=== PATIENT | male | born 1955 | race Caucasian/White ===

== ENCOUNTER → 2020-02-27 10:42 | Outpatient (BNVA) | payer OTHER, SELFPAY | PROVIDERS: PCP Internal Medicine; Visit Provider Surgery | DX: Z01.818 Encounter for other preprocedural examination (principal); Z86.010 Personal history of colon polyps ==

== ENCOUNTER 2020-04-15 07:27 | Day surgery (SDC) | payer OTHER, SELFPAY ==
[2020-04-10 11:16] VITALS: BMI 29.1
[2020-04-15 08:08] VITALS: BP 156/88; PULSE 65; RESP 16; TEMP 36.4; O2SAT 99
--- NOTE | 2020-04-15 08:12 | HO.ANESPROP2 ---
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 [facility]LY [facility] Past Medical History Medical History GERD (gastroesophageal reflux disease) Hiatal hernia History of colon polyps Multiple system atrophy Sleep apnea TIA (transient ischemic attack) Family History Family History Father No problems noted. Mother History of breast cancer Family history of problems with anesthesia: No Surgical History Surgical History H/O arthroscopy of right knee History of colonoscopy (~06/2010) History of cystoscopy (~12/2009) Hx of esophagogastroduodenoscopy Hx of lumbar discectomy History of Problems with Anesthesia: No Social History Social History Are you a primary client care coordinator to a significant other at home: No Do you presently have visiting nurse or other home services: No Alcohol intake: never Smoking Status: Never smoker Second Hand Smoke Exposure: No Use of substances other than those prescribed or required for medical reasons: No Have you been hit, kicked, punched, or otherwise hurt by someone within the past year? If so, by whom?: No Advance Directives: No Advance Directives Information Provided: No Advance Directives on File: No Recently lost weight without trying: No Meds Allergies Allergy/AdvReac Type Severity Reaction Status Date / Time No Known Allergies Allergy Verified 04/15/20 08:02 [No Known Allergies*] Home Medications Medication Instructions Recorded Confirmed Type aspirin 81 mg tablet,delayed 81 mg PO DAILY 02/27/20 04/10/20 History release carbidopa 25 mg-levodopa 100 mg 1.5 tab PO TID tab 02/27/20 04/10/20 History tablet carbidopa ER 50 mg-levodopa 200 mg 1 tab PO BEDTIME 02/27/20 04/10/20 History tablet,extended release tamsulosin 0.4 mg capsule 0.4 mg PO BID 02/27/20 04/10/20 History donepezil 1 tab PO DAILY 04/10/20 04/10/20 History gabapentin enacarbil [Horizant] 600 mg PO BID 04/10/20 04/10/20 History Exam Exam Date and Time: April 15, 2020 0812 Height,Weight and Vital Signs: Height 5 ft 7 in Weight 84.368 kg Last Vital Signs Temp 97.6 F 04/15/20 08:08 Pulse 65 04/15/20 08:08 Resp 16 04/15/20 08:08 BP 156/88 H 04/15/20 08:08 Pulse Ox 99 04/15/20 08:08 Airway Mallampati Class: II TM Dist: >3cm Neck ROM: Full Heart: RRR Lungs: CTAB Assessment and Plan Assessment Anesthesia Assessment: Anesthesia Plan Discussed and Chart Reviewed Final Anesthetic Review NPO: Yes ASA Class: III Final Preanesthetic Review: No Changes in Pt Med Stat, Meds/Allgs Chart Reviewed, Consent Obtained/Reviewed and Anes Risks/Benef Reviewed Patient Risk: Intermediate Procedure Risk: Low Anesthetic Plan Anesthetic Plan: MAC: Disposition: Standard PACU
[2020-04-15] MEDS: Lactated Ringers 1,000 ML 100 ML IVCONT (08:13)
[2020-04-15] MEDS: Sodium Phosphate,Mono-Dibasic 133 ML ENEMA PR ×2 (08:32→08:46)
--- NOTE | 2020-04-15 08:35 | P.HPSUR_ITS ---
Pre-Procedural Eval Section B Chief Complaint: Hx of Colonic Polyps Details of Present Illness: personal history of colon polyps. no new GI complaints. Relevant Family History (Specify if Yes): No Relevant Social History: None Present Medications: see Short Stay Collaborative assessment Medical History: Significant History (multiple system atrophy, h/o TIA, sleep apnea) History of Previous Operations: No relevant previous surgery Allergies: Allergies Allergy/AdvReac Type Severity Reaction Status Date / Time No Known Allergies Allergy Verified 04/15/20 08:02 [No Known Allergies*] Review of Systems Sugical H&P ROS: Negative: Constitution, Cardiovascular, Respiratory, Psychiatric, Hem-Onc, Allergic/Immunologic, Gastrointestinal, Genitourinary, Integumentary, Endocrine and Eyes/Ears/Nose/Throat and Yes, Specify: Neurologi humberto (cognitive decline) and Musculoskeletal (weakness) Exam Surgical H&P Exam: Normal: HEENT, Normal: Heart, Normal: Lungs, Normal: Extremities, Normal: Abdomen, Normal: Skin and Normal: Neurological Exam Comment: No obvious cognitive defects Plan Diagnosis/Plan: Unchanged Patient has been examined and remains a candidate for the planned procedure
--- NOTE | 2020-04-15 08:43 | PC.NURSE ---
PT WITH DARK BROWN LIQUID AND RESIDUE. FLEETS ORDERED AND GIVEN AT 718. RESULTS WERE DARK LIQUID BROWN AND PARTICLES. 2ND FLEETS ORDERED AND GIVEN AT 0840.
[2020-04-15 10:17] VITALS: BP 124/82; PULSE 82; RESP 15; TEMP 36.4; O2SAT 97
--- NOTE | 2020-04-15 10:19 | W.PM.OPN ---
Operative Note Operative Note Date of Service: 04/15/20 Narrative: Preoperative diagnosis: History of colon polyps Postoperative diagnosis: Normal colon through transverse colon Procedure: Colonoscopy through transverse colon Anesthesia: Monitored anesthesia care Estimated blood loss: None Specimens: None Immediate complications: None Indications Mr. Wood is a 64-year-old gentleman with a history of colon polyps who presents for routine screening. Procedure in detail: With patient in left lateral decubitus position, time-out procedure was performed. Adequate sedation was then obtained. Rectal examination was performed and revealed decreased rectal tone. No other abnormalities were identified. The flexible pediatric colonoscope was introduced and was gradually advanced through the bowel to the level of either the proximal transverse colon or right colon. The prep was poor with a large amount of turbid fluid containing a significant amount of particulate material present throughout the bowel. This could be irrigated and suctioned away to a certain extent, but technical difficulties were encountered day as there was frequent clogging of the suction channel requiring flushing in changing of the suction button. Because of the large amount of liquid stool and particulate matter present, adequate visualization could not be obtained to advance the scope into the cecum. It appeared likely that the hepatic flexure had been reached. The scope was slowly withdrawn, visualizing mucosal surfaces as possible. No abnormalities were noted. He tolerated the procedure well. Because of his baseline medical condition, further attempts at colonoscopy likely will not be undertaken, but this will be discussed with him.
[2020-04-15 10:32] VITALS: BP 152/72; PULSE 65; RESP 18; TEMP 36.4; O2SAT 99
== END 2020-04-15 10:55 | disposition home or self-care (01) ==
PROVIDERS: PCP Internal Medicine; Visit Provider Surgery
PROC: 0DJD8ZZ Inspection of Lower Intestinal Tract, Via Natural or Artificial Opening Endoscopic (ICD-10-PCS; CPT 45378; principal; 2020-04-15 08:40)
DX: Z12.11 Encounter for screening for malignant neoplasm of colon (principal); Z86.010 Personal history of colon polyps; G90.3 Multi-system degeneration of the autonomic nervous system; G47.30 Sleep apnea, unspecified; K21.9 Gastro-esophageal reflux disease without esophagitis; K44.9 Diaphragmatic hernia without obstruction or gangrene; Z79.82 Long term (current) use of aspirin; Z79.899 Other long term (current) drug therapy; Z86.73 Personal history of transient ischemic attack (TIA), and cerebral infarction without residual deficits
CPT/HCPCS: 45378

== ENCOUNTER 2020-09-24 11:45 | Emergency (ER) | payer OTHER, SELFPAY ==
--- NOTE | ~2020-09-24 | CT_ITS ---
EXAMINATION: CT GI bleed, ABDOMEN AND PELVIS of the bowel. CONTRAST CLINICAL INFORMATION: Rectal bleeding. Abdominal pain. Concern for colitis. COMPARISON: CT abdomen pelvis 10/28/2013 TECHNIQUE: Helical CT scan of abdomen and pelvis. Images were obtained through the abdomen and pelvis precontrast, immediate postcontrast as well as a 2 minute delayed sequence. IV contrast: 80 mL Omnipaque 350 Oral contrast: None Reconstruction: Coronal and sagittal reformatted images performed at CT scanner by the technologist. [This CT examination was performed using dose optimization techniques as appropriate, variously including the following: *Automated exposure control *Adjustment of mA and/or kV according to patient size (this includes techniques or standardized protocols for targeted exams where dose is matched to indication/reason for exam; i.e. extremities or head) *Use of iterative reconstruction technique] FINDINGS: LUNG BASES: The visualized lung bases are unremarkable. LIVER, GALLBLADDER, AND BILIARY TREE: The liver is normal in size, shape, and attenuation. No focal hepatic lesion or biliary ductal dilatation is present. Small mildly dense gallstones or sludge layering dependently in the gallbladder. No edema around the gallbladder. There is no bile duct dilatation. PANCREAS: No acute change of the pancreas. No mass. No pancreatic duct dilatation. SPLEEN: Spleen normal in size and contour. No focal lesion. As a small splenule at the anterior splenic margin. ADRENAL GLANDS: Adrenal glands are normal in size. No focal mass. KIDNEYS AND URETERS: There is a nonobstructive 1 mm stone in the midpole the right kidney. There is no stone in the left kidney. There are no ureteral calculi. There is no hydronephrosis. BLADDER: Unremarkable. GASTROINTESTINAL TRACT: There are numerous diverticula of the sigmoid and descending colon. There are a few scattered diverticula also in the right colon. There is focal inflammation with bowel wall thickening and pericolonic edema at the mid through distal descending colon consistent with a mild to moderate diverticulitis. There is no perforation or abscess. On the postcontrast imaging exam there is no pooling of the contrast within the lumen of bowel. The site of the gastrointestinal hemorrhage is therefore not defined with this exam. There is a moderate volume of stool in the colon. The appendix is normal . The small bowel loops are unremarkable. The stomach is normal. There is no hiatal hernia. MESENTERY: No inflammation right lower quadrant due to the diverticulitis. No abscess. No free air or free fluid. ABDOMINAL WALL: No significant hernia is appreciated. LYMPH NODES: Normal. VASCULAR: Scattered vascular calcifications of aorta and iliac arteries. There is no aneurysm. PELVIC VISCERA: Prostate mildly enlarged measuring 5 cm transverse. Coarse calcifications within the prostate. OSSEOUS STRUCTURES: Multilevel degenerative spondylosis of the spine. CT/CT gi bleed abd pel wo/w con IMPRESSION: 1. Diverticulitis of the mid to distal descending colon. 2. There is no pooling of contrast in the lumen of the bowel to indicate a site of gastrointestinal hemorrhage. 3. Cholelithiasis. 4. Nonobstructive 1 mm stone in right kidney.
[2020-09-24 11:53] VITALS: BP 177/92; PULSE 72; RESP 18; TEMP 36.6; O2SAT 98; BMI 29.7
--- NOTE | 2020-09-24 13:01 | ED.GENADULT ---
HPI - General Adult General Chief complaint: GI Bleed Stated complaint: rectal bleeding Time Seen by Provider: 09/24/20 12:30 Source: patient Mode of arrival: ambulatory Limitations: no limitations History of Present Illness HPI narrative: Patient presents to ED for rectal bleeding since Monday and lower abdominal pain. Patient states stool is brown. Patient states also having bright red blood. Patient denies history of hemorrhoids. Patient states no fever or chills. Patient not on any blood thinners. Patient denies any recent trauma to the abdomen. Related Data Home Medications Medication Instructions Recorded Confirmed aspirin 81 mg tablet,delayed 81 mg PO DAILY 02/27/20 04/10/20 release carbidopa 25 mg-levodopa 100 mg 1.5 tab PO TID tab 02/27/20 04/10/20 tablet carbidopa ER 50 mg-levodopa 200 mg 1 tab PO BEDTIME 02/27/20 04/10/20 tablet,extended release tamsulosin 0.4 mg capsule 0.4 mg PO BID 02/27/20 04/10/20 Horizant 600 mg PO BID 04/10/20 04/10/20 donepezil 1 tab PO DAILY 04/10/20 04/10/20 Previous Rx's Medication Instructions Recorded ciprofloxacin HCl [Cipro] 500 mg PO Q12H 7 Days #14 tab 09/24/20 metronidazole 500 mg PO TID 7 Days #21 tab 09/24/20 Allergies Allergy/AdvReac Type Severity Reaction Status Date / Time No Known Allergies Allergy Verified 04/15/20 08:02 [No Known Allergies*] Review of Systems Review of Systems: Yes all other systems are reviewed and are negative Constitutional: Constitutional: Reports as per HPI and Reports no additional constitutional complaints Eyes: Eyes: Reports as per HPI and Reports no additional eye complaints ENT: Reports system reviewed and no additional complaints, except as documented and Reports as per HPI Cardiovascular: Cardiovascular: Reports as per HPI and Reports no additional cardiovascular complaints Respiratory: Respiratory: Reports as per HPI and Reports no additional respiratory complaints Gastrointestinal: Gastrointestinal: Reports as per HPI, Reports no additional gastrointestinal complaints, Reports abdominal pain (Lower abdominal pain) and Reports hematochezia Genitourinary: Genitourinary: Reports no additional male genitourinary complaints and Reports as per HPI Musculoskeletal: Musculoskeletal: Reports no additional musculoskeletal complaints and Reports as per HPI Neurologic: Reports system reviewed and no additional complaints, except as documented and Reports as per HPI Psychiatric: Psychiatric: Reports no additional psychiatric complaints and Reports as per HPI [facility] Past Medical History Medical History GERD (gastroesophageal reflux disease) Hiatal hernia History of colon polyps Multiple system atrophy Sleep apnea TIA (transient ischemic attack) Surgical History H/O arthroscopy of right knee History of colonoscopy (~06/2010) History of cystoscopy (~12/2009) Hx of esophagogastroduodenoscopy Hx of lumbar discectomy Family History Family History Father No problems noted. Mother History of breast cancer Social History Social History Alcohol intake: never Smoking Status: Never smoker Second Hand Smoke Exposure: No Advance Directives: No Advance Directives Information Provided: No Physical Exam Vital Signs: Vital Signs: Last Vital Signs Temp 97.6 F 09/24/20 13:12 Pulse 72 09/24/20 15:51 Resp 16 09/24/20 15:51 BP 152/80 H 09/24/20 13:12 Pulse Ox 99 09/24/20 15:51 Body Mass Index 29.7 Const: General: cooperative, healthy appearing, comfortable, no acute distress, well developed, alert, awake and Physically active Orientation/consciousness: patient oriented x3 HENMT: Head: Yes normal to inspection, Yes No palpable skull fracture present, Yes normocephalic and Yes atraumatic Eyes: General: appearance normal, both eyes and all related structures Neck: Neck: Yes normal visual inspection, Yes full ROM, Yes no lymphadenopathy, Yes no meningeal signs, Yes trachea midline, Yes supple and No tender Chest: Chest palpation & inspection: normal inspection of the chest and normal palpation of entire chest wall Resp: Effort & Inspection: normal respiratory effort and able to speak in complete sentences Auscultation: clear to auscultation bilaterally Cardio: Jugular venous distension: no JVD Heart sounds: S1 normal heart sound present and S2 normal heart sound present GI: Other: Rectal exam: Negative for hemorrhoids. positive for bright mary blood. negative for black stool. Inspection: Yes normal to inspection and No abdominal wall ecchymosis Palpation (GI): Soft to palpation, not firm, Tenderness to palpation present (GI) in the LLQ and in the RLQ, no guarding and not rigid : General: No CVA tenderness and Yes no CVA tenderness Back/Spine/Pelvis: Back: no CVA tenderness, No CVA tenderness and No back tenderness Skin: General skin exam: no rashes or lesions noted and elasticity normal Neuro: General: patient oriented x3, gait normal, no meningeal signs and CN's II-XI intact bilaterally Cranial nerves: Yes CN's II-XII intact bilaterally Extrem: General: Yes normal to inspection and Yes full ROM Psych: Appearance: grossly normal, well kempt and not disheveled Course Course Course Narrative: Patient will be evaluated for rule out GI bleed. Patient will have labs drawn. Patient was given fluid. Patient does not want any pain medication. Patient will have imaging done. Reevaluation(s) Reevaluation #1: Patient presently hemodynamically stable with due to bright red mary blood from rectum and not much stool on exam patient will have CT GI bleed protocol to look for location of GI bleed and also possible colitis. Patient not in any distress. Time: 14:14 Reevaluation #2: Patient's CT scan showed diverticulitis. Patient's CT scan also shows gallstones and lipase is elevated which may indicate gallstone pancreatitis, but patient presently does not have any abdominal pain in the ER and also patient stated he never had any upper abdominal pain. Patient main complaint was rectal bleeding. Will contact surgery. Reevaluation #3: Spoke with Dr. Sanabria of surgery and made her aware of patient's elevated lipase and CT scan reading of gallstones. She states since patient is not having any upper abdominal pain, patient could be discharged and to follow up with outpatient surgery. she states Presently patient does not have any need for surgical intervention. Patient will be discharged with Cipro and metronidazole. Patient given copying of images and labs to follow-up with PCP and surgeon Medical Decision Making MDM Narrative Medical decision making narrative: Diverticulitis Lab Data Result diagrams: 09/24/20 13:04 09/24/20 13:04 Labs: Lab Results 09/24/20 09/24/20 09/24/20 Range/Units 13:04 13:04 13:04 WBC 10.7 (4.8-10.8) X10*3/uL RBC 5.15 (4.60-5.80) X10*6/uL Hgb 16.2 (14.0-18.0) g/dl Hct 46.9 (42-52) % MCV 91.1 (80-98) fL MCH 31.5 (27.0-33.0) pg MCHC 34.5 (31.0-36.0) g/dl RDW 13.0 (11.0-16.0) % Plt Count 211 (160-400) X10*3/uL MPV 8.7 L (9.4-12.4) fL Immature Gran % (Auto) 0.3 (0.0-0.4) % Neut % (Auto) 67.5 (45-73) % Lymph % (Auto) 21.2 (20-40) % [place] % (Auto) 8.6 (2-11) % Eos % (Auto) 1.9 (0-4) % Baso % (Auto) 0.5 (0-2) % Lymph # (Auto) 2.3 (1.2-4.9) X10*3/uL [place] # (Auto) 0.9 (0.1-1.2) X10*3/uL Eos # (Auto) 0.2 (0.0-0.4) X10*3/uL Baso # (Auto) 0.1 (0.0-0.2) X10*3/uL Abs Immat Gran (auto) 0.03 (0.00-0.03) X10*3/uL Absolute Neuts (auto) 7.3 (2.0-8.3) X10*3/uL Absolute Nucleated RBC 0.000 (0.0-0.012) X10*3/uL Nucleated RBC % (auto) 0.0 (0.0-0.2) /100WBC PT 13.5 H (10.8-13.0) SEC INR 1.1 (0.9-1.1) APTT 36.6 (24.1-38.0) SEC Sodium 145 (135-145) mmol/L Potassium 3.8 (3.3-5.1) mmol/L Chloride 105 (96-108) mmol/L Carbon Dioxide 31 H (22-29) mmol/L Anion Gap 13 (12-20) BUN 13 (9-16) mg/dL Creatinine 0.81 (0.5-1.4) mg/dL Estim Creat Clear Calc 96.6 Estimated GFR > 60 Random Glucose 97 (60-115) mg/dL Calcium 9.2 (8.4-10.2) mg/dL Total Bilirubin 1.1 H (0.0-1.0) mg/dL Direct Bilirubin 0.4 (0.0-0.5) mg/dL AST 21 (5-37) U/L ALT 6 (0-40) U/L Alkaline Phosphatase 49 (39-117) U/L Total Protein 7.2 (6.5-8.0) g/dL Albumin 4.4 (3.5-5.0) g/dL Lipase 836 H (8-78) U/L Stool Occult Blood (NEGATIVE) Blood Type Antibody Screen 09/24/20 09/24/20 Range/Units 13:04 13:30 WBC (4.8-10.8) X10*3/uL RBC (4.60-5.80) X10*6/uL Hgb (14.0-18.0) g/dl Hct (42-52) % MCV (80-98) fL MCH (27.0-33.0) pg MCHC (31.0-36.0) g/dl RDW (11.0-16.0) % Plt Count (160-400) X10*3/uL MPV (9.4-12.4) fL Immature Gran % (Auto) (0.0-0.4) % Neut % (Auto) (45-73) % Lymph % (Auto) (20-40) % [place] % (Auto) (2-11) % Eos % (Auto) (0-4) % Baso % (Auto) (0-2) % Lymph # (Auto) (1.2-4.9) X10*3/uL [place] # (Auto) (0.1-1.2) X10*3/uL Eos # (Auto) (0.0-0.4) X10*3/uL Baso # (Auto) (0.0-0.2) X10*3/uL Abs Immat Gran (auto) (0.00-0.03) X10*3/uL Absolute Neuts (auto) (2.0-8.3) X10*3/uL Absolute Nucleated RBC (0.0-0.012) X10*3/uL Nucleated RBC % (auto) (0.0-0.2) /100WBC PT (10.8-13.0) SEC INR (0.9-1.1) APTT (24.1-38.0) SEC Sodium (135-145) mmol/L Potassium (3.3-5.1) mmol/L Chloride (96-108) mmol/L Carbon Dioxide (22-29) mmol/L Anion Gap (12-20) BUN (9-16) mg/dL Creatinine (0.5-1.4) mg/dL Estim Creat Clear Calc Estimated GFR Random Glucose (60-115) mg/dL Calcium (8.4-10.2) mg/dL Total Bilirubin (0.0-1.0) mg/dL Direct Bilirubin (0.0-0.5) mg/dL AST (5-37) U/L ALT (0-40) U/L Alkaline Phosphatase (39-117) U/L Total Protein (6.5-8.0) g/dL Albumin (3.5-5.0) g/dL Lipase (8-78) U/L Stool Occult Blood POSITIVE (NEGATIVE) Blood Type AB Positive Antibody Screen NEGATIVE Discharge Plan Discharge Clinical Impression: Diverticulitis, Gallstone Patient Disposition: Home, Self-Care Instructions: Diverticulitis (ED), Biliary Colic (ED) Additional Instructions: Return to the ED immediately for worsening abdominal pain, worsening rectal bleeding, vomiting, fever, chills, inability tolerate solid food/liquid, or any other concerning symptoms. Prescriptions: New ciprofloxacin HCl [Cipro] 500 mg tablet 500 mg PO Q12H 7 Days Qty: 14 RF: 0 metronidazole 500 mg tablet 500 mg PO TID 7 Days Qty: 21 RF: 0 No Action donepezil 5 mg tablet 1 tab PO DAILY RF: 0 Horizant 600 mg tablet extended release 600 mg PO BID RF: 0 carbidopa-levodopa 50-200 mg tablet extended release 1 tab PO BEDTIME RF: 0 tamsulosin 0.4 mg capsule 0.4 mg PO BID RF: 0 aspirin 81 mg tablet,delayed release (DR/EC) 81 mg PO DAILY RF: 0 carbidopa-levodopa 25-100 mg tablet 1.5 tab PO TID RF: 0 Referrals: Neil Lewis MD [Primary Care Provider] - 2 days (Diverticulitis) Miryam Jeong MD [Physician] - 2 days (CT scan shows gallstones. Elevated lipase of 143, but negative for any upper abdominal pain.) Interventions: ED Discharge Assessment Last Done: 09/24/20 18:16 Discharge Date/Time: 09/24/20 18:16 Print Language: Slovak
[2020-09-24] MEDS: 0.9 % Sodium Chloride 1,000 ML 999 ML IV (13:05)
[2020-09-24 13:11] LABS: MANUAL DIFF FLAG NO
[2020-09-24 13:12] VITALS: BP 152/80; PULSE 68; RESP 15; TEMP 36.4; O2SAT 97
[2020-09-24 13:13] LABS: Basophils Absolute Auto 0.1 X10*3/uL (0.0-0.2); Basophils Percent Auto 0.5 % (0-2); Eosinophils Absolute Auto 0.2 X10*3/uL (0.0-0.4); Eosinophils Percent Auto 1.9 % (0-4); Hematocrit 46.9 % (42-52); Hemoglobin 16.2 g/dl (14.0-18.0); Imm Gran Abs Auto 0.03 X10*3/uL (0.00-0.03); Imm Gran Pct Auto 0.3 % (0.0-0.4); Lymphocytes Absolute Auto 2.3 X10*3/uL (1.2-4.9); Lymphocytes Percent Auto 21.2 % (20-40); Mean Corpuscular HGB Conc 34.5 g/dl (31.0-36.0); Mean Corpuscular Hemoglobin 31.5 pg (27.0-33.0); Mean Corpuscular Volume 91.1 fL (80-98); Mean Platelet Volume 8.7 fL (9.4-12.4); Monocytes Absolute Auto 0.9 X10*3/uL (0.1-1.2); Monocytes Percent Auto 8.6 % (2-11); Neutrophils Absolute Auto 7.3 X10*3/uL (2.0-8.3); Neutrophils Percent Auto 67.5 % (45-73); OBS Int Ctl Valid YES; OBS1 POSITIVE (NEGATIVE); Platelet Count 211 X10*3/uL (160-400); Red Blood Count 5.15 X10*6/uL (4.60-5.80); White Blood Count 10.7 X10*3/uL (4.8-10.8)
[2020-09-24 13:20] LABS: INTERNATIONAL NORM RATIO 1.1 (0.9-1.1); Prothrombin Time 13.5 SEC (10.8-13.0)
[2020-09-24 13:22] LABS: Partial Thromboplastin Time 36.6 SEC (24.1-38.0)
[2020-09-24 13:53] LABS: Alanine Aminotransferase 6 U/L (0-40); Albumin Level 4.4 g/dL (3.5-5.0); Alkaline Phosphatase 49 U/L (39-117); Anion Gap 13 (12-20); Aspartate Amino Transferase 21 U/L (5-37); Bilirubin Direct 0.4 mg/dL (0.0-0.5); Bilirubin Total 1.1 mg/dL (0.0-1.0); Blood Urea Nitrogen 13 mg/dL (9-16); Calcium 9.2 mg/dL (8.4-10.2); Carbon Dioxide 31 mmol/L (22-29); Chloride 105 mmol/L (96-108); Creatinine Clr Calc Pharmacy 96.6; Estimated Glomerular Filt Rate > 60; Glucose Random 97 mg/dL (60-115); Potassium 3.8 mmol/L (3.3-5.1); Sodium 145 mmol/L (135-145); Total Protein 7.2 g/dL (6.5-8.0)
[2020-09-24 14:04] LABS: Lipase 836 U/L (8-78)
[2020-09-24] MEDS: iohexoL 350 MG/ML 100 ML INFUS..BTL IV (15:02)
[2020-09-24] MEDS: Carbidopa/Levodopa 25/100 TABLET 1 TAB PO (15:50)
[2020-09-24 15:51] VITALS: PULSE 72; RESP 16; O2SAT 99
--- NOTE | 2020-09-24 15:53 | PC.NURSE ---
AWAITING CT SCAN RESULTS. SKIN WPD, VS WNL, BP SLIGTLY ELEVATED. REPORTS ONGOING ABD PAIN. MEDICATED REQUESTED BY PT.
== END 2020-09-24 18:16 | disposition home or self-care (01) ==
PROVIDERS: Physician Assistant; Emergency Provider Internal Medicine; PCP Internal Medicine
DX: K57.32 Diverticulitis of large intestine without perforation or abscess without bleeding (principal); K80.80 Other cholelithiasis without obstruction; Z79.899 Other long term (current) drug therapy; Z79.82 Long term (current) use of aspirin
CPT/HCPCS: 36415; 74178; 80053; 80076; 82248; 82272; 83690; 85025; 85610; 85730; 86850; 86900; 86901; 96360; 99284; Q9967

== ENCOUNTER 2020-09-29 16:06 | Outpatient (REF) | payer OTHER, SELFPAY ==
[2020-09-29 16:11] LABS: MANUAL DIFF FLAG NO
[2020-09-29 16:14] LABS: Basophils Absolute Auto 0.1 X10*3/uL (0.0-0.2); Basophils Percent Auto 0.7 % (0-2); Eosinophils Absolute Auto 0.2 X10*3/uL (0.0-0.4); Eosinophils Percent Auto 2.7 % (0-4); Hematocrit 44.7 % (42-52); Hemoglobin 15.2 g/dl (14.0-18.0); Imm Gran Abs Auto 0.01 X10*3/uL (0.00-0.03); Imm Gran Pct Auto 0.1 % (0.0-0.4); Lymphocytes Absolute Auto 2.4 X10*3/uL (1.2-4.9); Lymphocytes Percent Auto 32.9 % (20-40); Mean Corpuscular Hemoglobin 30.5 pg (27.0-33.0); Mean Corpuscular Volume 89.6 fL (80-98); Mean Platelet Volume 9.3 fL (9.4-12.4); Monocytes Absolute Auto 0.7 X10*3/uL (0.1-1.2); Monocytes Percent Auto 10.1 % (2-11); Neutrophils Absolute Auto 3.8 X10*3/uL (2.0-8.3); Neutrophils Percent Auto 53.5 % (45-73); Platelet Count 233 X10*3/uL (160-400); Red Blood Count 4.99 X10*6/uL (4.60-5.80); Red Cell Distribution Width 12.8 % (11.0-16.0); White Blood Count 7.2 X10*3/uL (4.8-10.8)
[2020-09-29 16:40] LABS: Amylase 63 U/L (28-100); Lipase 30 U/L (8-78)
== END 2020-09-29 16:07 | disposition home or self-care (01) ==
LOC: HO.LNP 16:06
PROVIDERS: Visit Provider Internal Medicine
DX: K57.92 Diverticulitis of intestine, part unspecified, without perforation or abscess without bleeding (principal)
CPT/HCPCS: 82150; 83690; 85025

== ENCOUNTER 2020-10-23 10:52 | Outpatient (REF) | payer OTHER, SELFPAY ==
[2020-10-23 12:15] LABS: Blood Urea Nitrogen 18 mg/dL (9-16); Estimated Glomerular Filt Rate > 60
== END 2020-10-23 10:53 | disposition home or self-care (01) ==
LOC: HO.LNP 10:52
PROVIDERS: Visit Provider Internal Medicine
DX: Z01.812 Encounter for preprocedural laboratory examination (principal)
CPT/HCPCS: 82565; 84520

== ENCOUNTER 2020-10-28 08:34 | Outpatient (REF) | payer OTHER, SELFPAY ==
--- NOTE | ~2020-10-28 | CT_ITS ---
EXAMINATION: CT ABDOMEN AND PELVIS WITH CONTRAST CLINICAL INFORMATION: Abdominal pain, rule out diverticulitis. COMPARISON: CT scan of the abdomen and pelvis dated 09/24/2020. TECHNIQUE: Multidetector volumetric images were obtained from the superior aspect of the liver through the pubic symphysis following administration 85 mL of Omnipaque 350 intravenous contrast. Sagittal and coronal reformatted images were obtained on the technologist's workstation. Oral contrast: No This CT examination was performed using dose optimization techniques as appropriate, variously including the following: *Automated exposure control *Adjustment of mA and/or kV according to patient size (this includes techniques or standardized protocols for targeted exams where dose is matched to indication/reason for exam; i.e. extremities or head) *Use of iterative reconstruction technique DLP: 49 mGy-cm FINDINGS: LUNG BASES: The visualized lung bases are unremarkable. LIVER, GALLBLADDER, AND BILIARY TREE: Unremarkable. PANCREAS: Unremarkable. SPLEEN: Small splenule again noted without other significant abnormality. ADRENAL GLANDS: Unremarkable. KIDNEYS AND URETERS: Nonobstructing punctate interpolar right intrarenal calculus. Tiny cyst in the lower pole the left kidney without interval change. No hydronephrosis. BLADDER: Mild mural thickening without focal abnormality. GASTROINTESTINAL TRACT: The stomach, small bowel and appendix are unremarkable. Mild diverticulosis in the descending and sigmoid colon without surrounding abnormality. ABDOMINAL WALL: No significant hernia is appreciated. LYMPH NODES: No lymphadenopathy. VASCULAR: Unremarkable. PELVIC VISCERA: Moderate prostatomegaly with mild coarse calcifications and a volume of approximately 70 cc. OSSEOUS STRUCTURES: Multilevel degenerative changes and osseous fusion of L4 and L5 without significant change. No suspicious abnormality. CT/CT abdomen pelvis w con IMPRESSION: 1. Mild descending/sigmoid colon diverticulosis without evidence for acute diverticulitis. 2. Nonobstructing punctate interpolar right intrarenal calculus. Tiny left lower pole renal cyst demonstrates benign features. 3. Moderate prostatomegaly.
[2020-10-28] MEDS: iohexoL 350 MG/ML 100 ML INFUS..BTL 85 ML IV (11:06)
[2020-10-28] MEDS: Barium Sulfate Oral (Berry) 450 ML ORAL.SUSP 900 ML PO (11:06)
== END 2020-10-28 08:35 | disposition home or self-care (01) ==
LOC: HO.CT 08:34
PROVIDERS: PCP Internal Medicine; Visit Provider Internal Medicine
DX: K57.92 Diverticulitis of intestine, part unspecified, without perforation or abscess without bleeding (principal)
CPT/HCPCS: 74177; Q9967

== ENCOUNTER 2021-02-02 10:32 | Outpatient (REF) | payer OTHER, SELFPAY ==
[2021-02-02 10:34] LABS: MANUAL DIFF FLAG NO
[2021-02-02 11:20] LABS: Basophils Absolute Auto 0.1 X10*3/uL (0.0-0.2); Basophils Percent Auto 0.7 % (0-2); Eosinophils Absolute Auto 0.2 X10*3/uL (0.0-0.4); Eosinophils Percent Auto 2.9 % (0-4); Hemoglobin 15.5 g/dl (14.0-18.0); Imm Gran Abs Auto 0.01 X10*3/uL (0.00-0.03); Imm Gran Pct Auto 0.1 % (0.0-0.4); Lymphocytes Absolute Auto 3.3 X10*3/uL (1.2-4.9); Lymphocytes Percent Auto 47.8 % (20-40); Mean Corpuscular HGB Conc 33.7 g/dl (31.0-36.0); Mean Corpuscular Hemoglobin 30.3 pg (27.0-33.0); Mean Corpuscular Volume 89.8 fL (80-98); Mean Platelet Volume 9.3 fL (9.4-12.4); Monocytes Absolute Auto 0.8 X10*3/uL (0.1-1.2); Monocytes Percent Auto 10.8 % (2-11); Neutrophils Absolute Auto 2.6 X10*3/uL (2.0-8.3); Neutrophils Percent Auto 37.7 % (45-73); Platelet Count 223 X10*3/uL (160-400); Red Blood Count 5.12 X10*6/uL (4.60-5.80); Red Cell Distribution Width 13.1 % (11.0-16.0)
[2021-02-02 12:02] LABS: Alanine Aminotransferase 15 U/L (0-40); Albumin Level 4.3 g/dL (3.5-5.0); Alkaline Phosphatase 44 U/L (39-117); Anion Gap 14 (12-20); Aspartate Amino Transferase 28 U/L (5-37); Bilirubin Total 0.9 mg/dL (0.0-1.0); Blood Urea Nitrogen 13 mg/dL (9-16); Calcium 8.9 mg/dL (8.4-10.2); Carbon Dioxide 26 mmol/L (22-29); Chloride 106 mmol/L (96-108); Cholesterol 181 mg/dL; Estimated Glomerular Filt Rate > 60; Glucose Fasting 91 mg/dL (60-99); HDL Cholesterol 36 mg/dL; LDL Cholesterol Calculated 124 mg/dl; Potassium 3.9 mmol/L (3.3-5.1); Sodium 142 mmol/L (135-145); Total Protein 6.9 g/dL (6.5-8.0); Triglycerides 108 mg/dL
[2021-02-02 12:24] LABS: PSA,Total (Free>4and<10) 2.21 ng/mL (0.00-4.00)
[2021-02-02 12:42] LABS: Appearance Urine CLEAR; Color Urine YELLOW; Glucose Urine UA NEG (NEG); Leukocyte Esterase Urine NEG (NEG); Nitrite Urine NEG (NEG); Specific Gravity - Urine 1.015 (1.005-1.025); Urine Blood NEG (NEG); Urine Ketones NEG (NEG); Urine Protein NEG (NEG-TRACE)
== END 2021-02-02 10:33 | disposition home or self-care (01) ==
LOC: HO.LNP 10:32
PROVIDERS: Visit Provider Internal Medicine
DX: Z00.00 Encounter for general adult medical examination without abnormal findings (principal); Z12.5 Encounter for screening for malignant neoplasm of prostate; E78.00 Pure hypercholesterolemia, unspecified; N40.0 Benign prostatic hyperplasia without lower urinary tract symptoms; D72.820 Lymphocytosis (symptomatic)
CPT/HCPCS: 80053; 80061; 81003; 84153; 85025

== ENCOUNTER → 2021-12-02 10:47 | Outpatient (BNVA) | payer MEDICARE, SELFPAY | PROVIDERS: PCP Internal Medicine; Visit Provider Nurse Practitioner Family | DX: G47.33 Obstructive sleep apnea (adult) (pediatric) (principal); R40.0 Somnolence; R06.83 Snoring; Z99.89 Dependence on other enabling machines and devices | CPT/HCPCS: 99202 ==

== ENCOUNTER → 2021-12-15 08:44 | Outpatient (REF) | payer MEDICARE, SELFPAY | LOC: HO.SL 08:44 | PROVIDERS: PCP Internal Medicine; Visit Provider Nurse Practitioner Family | DX: G47.30 Sleep apnea, unspecified (principal); R40.0 Somnolence; R06.83 Snoring | CPT/HCPCS: 95806 ==

== ENCOUNTER 2022-03-03 11:14 | Outpatient (REF) | payer MEDICARE, SELFPAY ==
[2022-03-03 11:19] LABS: MANUAL DIFF FLAG NO
[2022-03-03 11:30] LABS: Basophils Absolute Auto 0.1 X10*3/uL (0.0-0.2); Basophils Percent Auto 0.9 % (0-2); Eosinophils Absolute Auto 0.2 X10*3/uL (0.0-0.4); Eosinophils Percent Auto 2.9 % (0-4); Hematocrit 46.2 % (42.0-52.0); Hemoglobin 15.9 g/dl (14.0-18.0); Imm Gran Abs Auto 0.02 X10*3/uL (0.00-0.03); Imm Gran Pct Auto 0.3 % (0.0-0.4); Lymphocytes Absolute Auto 3.5 X10*3/uL (1.2-4.9); Lymphocytes Percent Auto 43.7 % (20-40); Mean Corpuscular HGB Conc 34.4 g/dl (31.0-36.0); Mean Corpuscular Hemoglobin 31.1 pg (27.0-33.0); Mean Corpuscular Volume 90.4 fL (80.0-98.0); Monocytes Absolute Auto 0.8 X10*3/uL (0.1-1.2); Monocytes Percent Auto 9.6 % (2-11); Neutrophils Absolute Auto 3.4 x10*3/uL (2.0-8.3); Neutrophils Percent Auto 42.6 % (45-73); Platelet Count 261 X10*3/uL (160-400); Red Blood Count 5.11 X10*6/uL (4.60-5.80); Red Cell Distribution Width 13.2 % (11.0-16.0); White Blood Count 7.9 X10*3/uL (4.8-10.8)
[2022-03-03 11:41] LABS: Appearance Urine Clear; Color Urine Yellow; Glucose Urine UA Negative (Negative); Leukocyte Esterase Urine Trace (Negative); Nitrite Urine Negative (Negative); PH 5.5 (5.0-9.0); UMIC TRIGGER UA YES; Urine Blood Negative (Negative); Urine Ketones Negative (Negative); Urine Protein Negative (Neg-Trace)
[2022-03-03 11:43] LABS: Alanine Aminotransferase 15 U/L (0-40); Albumin Level 4.4 g/dL (3.5-5.0); Alkaline Phosphatase 48 U/L (39-117); Anion Gap 14 (12-20); Aspartate Amino Transferase 28 U/L (5-37); Bilirubin Total 0.5 mg/dL (0.0-1.0); Blood Urea Nitrogen 12 mg/dL (9-16); Calcium 8.8 mg/dL (8.4-10.2); Carbon Dioxide 27 mmol/L (22-29); Chloride 105 mmol/L (96-108); Cholesterol 195 mg/dL; Estimated Glomerular Filt Rate > 60; Glucose Fasting 96 mg/dL (60-99); HDL Cholesterol 33 mg/dL; LDL Cholesterol Calculated 124 mg/dl; Potassium 3.9 mmol/L (3.3-5.1); Sodium 142 mmol/L (135-145); Total Protein 7.2 g/dL (6.5-8.0); Triglycerides 190 mg/dL
[2022-03-03 11:47] LABS: Bacteria Urine None Seen (None Seen); Hyaline Casts Urine 0-2 /LPF (0-2); RBC Urine 0-2 /HPF (0-2); Squamous Epithelial Cell Urine 0-2 /HPF (0-2); WBC Urine 0-5 /HPF (0-5)
[2022-03-03 12:06] LABS: PSA,Total (Free>4and<10) 1.95 ng/mL (0.00-4.00)
== END 2022-03-03 11:15 | disposition home or self-care (01) ==
LOC: HO.LNP 11:14
PROVIDERS: Visit Provider Internal Medicine
DX: E78.00 Pure hypercholesterolemia, unspecified (principal); D72.820 Lymphocytosis (symptomatic); R97.20 Elevated prostate specific antigen [PSA]; Z12.5 Encounter for screening for malignant neoplasm of prostate
CPT/HCPCS: 80053; 80061; 81001; 84153; 85025

== ENCOUNTER → 2022-06-08 07:52 | Outpatient (BNVA) | payer MEDICARE, SELFPAY | PROVIDERS: PCP Internal Medicine; Visit Provider Nurse Practitioner Family | DX: R40.0 Somnolence (principal); G47.30 Sleep apnea, unspecified; G90.3 Multi-system degeneration of the autonomic nervous system | CPT/HCPCS: 99212 ==

== ENCOUNTER → 2022-09-07 07:49 | Outpatient (BNVA) | payer MEDICARE, SELFPAY | PROVIDERS: PCP Internal Medicine; Visit Provider Nurse Practitioner Family | DX: R40.0 Somnolence (principal); G47.30 Sleep apnea, unspecified; G90.3 Multi-system degeneration of the autonomic nervous system | CPT/HCPCS: 99212 ==

== ENCOUNTER 2023-01-25 15:11 | Outpatient (AMB) | payer MEDICARE, SELFPAY ==
[2023-01-25 15:18] VITALS: BP 130/82; PULSE 70; O2SAT 97; BMI 30.6
--- NOTE | 2023-01-25 15:18 | MHC.OFFVIS ---
Intake Vital Signs 01/25/23 15:18 Height 5 ft 7 in Weight 195 lb 2 oz BMI 30.6 BP 130/82 Blood Pressure Location Lt brachial Position Sitting Pulse 70 Pulse Source Pulse Oximeter Pulse Oximetry (%) 97 Oxygen Delivery Method Room Air Intake Visit Reasons: New prob- Restless leg syndrome-confirmed Intake Note: Pt presents as for a new problem. Tissue Coordinator Required: No Allergies No Known Allergies [No Known Allergies*] Allergy (Verified 01/25/23 15:20) Medication List - Last Reconciled 01/25/23 by Heather Ellison MD acetaminophen (Tylenol Extra Strength) 1,000 mg PO Q6H PRN carbidopa-levodopa 25-100 mg 1.5 tabs PO TID carbidopa-levodopa 50-200 mg ER 1 tab PO BEDTIME gabapentin enacarbil ER (Horizant ER) 600 mg PO BID lisinopril 5 mg PO DAILY tamsulosin 0.4 mg PO BID HPI HPI Comments History of Present Illness Details 67 y/o male patient presents for follow up of DARIUSZ on CPAP. The CPAP compliance and therapy response (11/18-01/18) reviewed with the patient. He is on APAP 10-12 cmH2O. THe usage days 86% and the average usage hours 5 hours and 20 min. 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 He reports uncomfortable sensations , creepy crawly sensation in his legs worse after 6 pm .It is present at rest, with activity and moving does not help.He denies any back pain.Once he sleeps he does not wake up with these symptoms. He tried on gabapentin and he did not respond, he was started on horizant ER 600mg bid 3 years ago and has been doing well. But for past 3 mths he is reporting increasing symptoms. [facility] Medical History (Updated 01/25/23 @ 16:02 by Heather Ellison MD) GERD (gastroesophageal reflux disease) Hiatal hernia History of colon polyps Multiple system atrophy Obstructive sleep apnea Restless legs syndrome (RLS) Sleep apnea TIA (transient ischemic attack) Surgical History H/O arthroscopy of right knee History of colonoscopy (~06/2010) History of cystoscopy (~12/2009) Hx of esophagogastroduodenoscopy Hx of lumbar discectomy Family History Father No problems noted. Mother History of breast cancer Social History Household Members: Spouse Are you a primary child care aide to a significant other at home: No Do you presently have visiting nurse or other home services: No Alcohol intake: former Patient Tobacco Use Status: Never used Tobacco Second Hand Smoke Exposure: No Use of substances other than those prescribed or required for medical reasons: No Current occupational status: retired Physical Exam Vital Signs: Last Vital Signs Pulse 70 01/25/23 15:18 BP 130/82 01/25/23 15:18 Pulse Ox 97 01/25/23 15:18 Oxygen Delivery Method Room Air 01/25/23 15:18 BMI result Body Mass Index 30.6 Const General: cooperative, healthy appearing and comfortable Nutritional Appearance: average body habitus Orientation/consciousness: patient oriented x3 Neuro Other: mild decreased facial expression and blink Mild increased tone left UE FFM mildly decrease dleft UE Gait- decreased arm swing on the left and stooped in lower back General: patient oriented x3 Cranial nerves: Yes Facial sensation intact/muscles of mastication intact, Yes Nystagmus not present, Yes Normal facial strength present and Yes Midline tongue present Cognition (Neuro): normal cognition Assessment & Plan Assessment & Plan (1) Restless legs syndrome (RLS): Code(s): G25.81 - Restless legs syndrome (2) Obstructive sleep apnea: Code(s): G47.33 - Obstructive sleep apnea (adult) (pediatric) (3) Multiple system atrophy: Comment: Sees Dr. Berlin Jade @ [facility] in [place]- Code(s): G90.3 - Multi-system degeneration of the autonomic nervous system Plan continue CPAP compliance stressed Continue horizant Er 600mg bid I will trial him on neupro patch 2mg qd continue carbidopa/levodopa - same dose will check his ferritin TSH VIT B 12 cbc cmp Orders: Orders Vitamin B12 and Folate Today G25.81 - Restless legs syndrome, G90.3 - Multi-system degeneration of the autonomic nervous system Comprehensive Met. Panel Today G25.81 - Restless legs syndrome, G90.3 - Multi-system degeneration of the autonomic nervous system Ferritin Today G2 - Restless legs syndrome, G90.3 - Multi-system degeneration of the autonomic nervous system TSH reflex Free T4 Today - Restless legs syndrome, G90.3 - Multi-system degeneration of the autonomic nervous system Vitamin D 25-OH (D2 and D3) Today - Restless legs syndrome, G90.3 - Multi-system degeneration of the autonomic nervous system Complete Blood Count Auto Diff Today - Restless legs syndrome, G90.3 - Multi-system degeneration of the autonomic nervous system Medications: New rotigotine (Neupro) 2 mg transdermal DAILY 30 ea 3RF Coding Level of Care Code Est Pt Level 4 (23479) Diagnoses Restless legs syndrome (RLS) Obstructive sleep apnea G47.33 Multiple system atrophy G90.3
== END 2023-01-25 16:06 | disposition home or self-care (01) ==
PROVIDERS: PCP Internal Medicine; Visit Provider Psychiatry & Neurology Neurology
DX: G25.81 Restless legs syndrome (principal); G47.33 Obstructive sleep apnea (adult) (pediatric); G90.3 Multi-system degeneration of the autonomic nervous system
CPT/HCPCS: 99214

== ENCOUNTER → 2023-01-25 15:11 | Outpatient (BNVA) | payer MEDICARE, SELFPAY | PROVIDERS: PCP Internal Medicine; Visit Provider Psychiatry & Neurology Neurology | DX: G47.33 Obstructive sleep apnea (adult) (pediatric) (principal); G25.81 Restless legs syndrome; G90.3 Multi-system degeneration of the autonomic nervous system; Z79.899 Other long term (current) drug therapy; Z99.89 Dependence on other enabling machines and devices | CPT/HCPCS: 99212 ==

== ENCOUNTER 2023-01-26 07:59 | Outpatient (REF) | payer MEDICARE, SELFPAY ==
[2023-01-26 08:33] LABS: MANUAL DIFF FLAG NO
[2023-01-26 08:37] LABS: Basophils Percent Auto 0.5 % (0-2); Eosinophils Absolute Auto 0.2 X10*3/uL (0.0-0.4); Eosinophils Percent Auto 3.3 % (0-4); Hemoglobin 16.3 g/dl (14.0-18.0); Imm Gran Abs Auto 0.01 X10*3/uL (0.00-0.03); Imm Gran Pct Auto 0.2 % (0.0-0.4); Lymphocytes Absolute Auto 2.6 X10*3/uL (1.2-4.9); Mean Corpuscular Hemoglobin 31.3 pg (27.0-33.0); Mean Corpuscular Volume 92.1 fL (80.0-98.0); Monocytes Absolute Auto 0.4 X10*3/uL (0.1-1.2); Monocytes Percent Auto 6.9 % (2-11); Neutrophils Absolute Auto 2.8 x10*3/uL (2.0-8.3); Neutrophils Percent Auto 46.1 % (45-73); Platelet Count 232 X10*3/uL (160-400); Red Blood Count 5.21 X10*6/uL (4.60-5.80); Red Cell Distribution Width 13.2 % (11.0-16.0)
[2023-01-26 09:39] LABS: Alanine Aminotransferase 7 U/L (0-40); Albumin Level 4.5 g/dL (3.5-5.0); Alkaline Phosphatase 43 U/L (39-117); Anion Gap 12 (12-20); Aspartate Amino Transferase 26 U/L (5-37); Bilirubin Total 0.9 mg/dL (0.0-1.0); Blood Urea Nitrogen 12 mg/dL (9-16); Calcium 9.6 mg/dL (8.4-10.2); Carbon Dioxide 28 mmol/L (22-29); Chloride 106 mmol/L (96-108); Estimated Glomerular Filt Rate > 60; Glucose Random 101 mg/dL (60-115); Potassium 4.1 mmol/L (3.3-5.1); Sodium 142 mmol/L (135-145); Total Protein 7.7 g/dL (6.5-8.0)
[2023-01-26 09:59] LABS: Ferritin 250 ng/mL (20-250); TSH reflex Free T4 1.26 uIU/mL (0.32-4.0)
[2023-01-26 10:16] LABS: Folate 12.3 ng/mL (> or = 4.0); Vitamin B12 460 pg/mL (200-900)
[2023-02-01 11:48] LABS: Vitamin D 25-OH, D2 <4 ng/mL; Vitamin D 25-OH, D3 24 ng/mL; Vitamin D 25-OH, Total 24 ng/mL (30-100)
== END 2023-01-26 08:00 | disposition home or self-care (01) ==
LOC: HO.LAB 07:59
PROVIDERS: PCP Internal Medicine; Visit Provider Psychiatry & Neurology Neurology
DX: G90.3 Multi-system degeneration of the autonomic nervous system (principal); G25.81 Restless legs syndrome
CPT/HCPCS: 36415; 80053; 82306; 82607; 82728; 82746; 84443; 85025

== ENCOUNTER 2023-03-29 13:16 | Outpatient (AMB) | payer MEDICARE, SELFPAY ==
--- NOTE | 2023-03-29 13:18 | A.OFFVIS_ITS ---
Intake Vital Signs 03/29/23 13:24 Height 5 ft 7 in BP 142/78 H Blood Pressure Location Rt brachial Position Sitting Intake Visit Reasons: follow up (per MD) - Conf through CW Intake Note: Patient presents for follow up. patient states follow up on medication, I had a reaction to it. Allergies No Known Allergies [No Known Allergies*] Allergy (Verified 03/29/23 13:23) Medication List - Last Reconciled 03/29/23 by Svitlana Fox CNP acetaminophen (Tylenol Extra Strength) 1,000 mg PO Q6H PRN carbidopa-levodopa 25-100 mg 1.5 tabs PO TID carbidopa-levodopa 50-200 mg ER 1 tab PO BEDTIME gabapentin enacarbil ER (Horizant ER) 600 mg PO BID lisinopril 5 mg PO DAILY tamsulosin 0.4 mg PO BID HPI HPI Comments History of Present Illness Details 67 y/o male patient presents for follow up of DARIUSZ on CPAP, and restless legs syndrome. The CPAP compliance and therapy response (02/27-03/28) reviewed with the patient. He is on APAP 10-12 cmH2O. THe usage days 100% and the average usage hours 5 hours and 40 min. The median pressure is 10.5 and the residual AHI was 1.5/hr. He sleeps well, and daytime tiredness has improved. Pt reports he tried Neupro patch for 2 weeks, had really bad skin reaction, and stopped using it. The restless legs has been worsened. He reports uncomfortable sensations with legs muscle tightness and pain, it is worse after 7pm. It is present at rest, with activity and moving does not help. Once he sleeps, these symptoms relieved. He is on Sinemet 1.5 tabs TID at 10 am, 3 pm and 8 pm, and Sinemet 50-200 mg ER at 9 or 10 pm. He is also takes Horizant ER 600 mg BID every other day, and Horizant ER 600 mg once a day, every other day. 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 . [facility] Medical History (Updated 01/25/23 @ 16:02 by Heather Ellison MD) Obstructive sleep apnea Restless legs syndrome (RLS) Hiatal hernia GERD (gastroesophageal reflux disease) TIA (transient ischemic attack) Sleep apnea History of colon polyps Multiple system atrophy Surgical History Hx of lumbar discectomy H/O arthroscopy of right knee Hx of esophagogastroduodenoscopy History of colonoscopy (~06/2010) History of cystoscopy (~12/2009) Family History Father No problems noted. Mother History of breast cancer Social History Household Members: Spouse Are you a primary healthcare social worker to a significant other at home: No Do you presently have visiting nurse or other home services: No Alcohol intake: former Patient Tobacco Use Status: Never used Tobacco Second Hand Smoke Exposure: No Current occupational status: retired Review of Systems Const All systems reviewed & are unremarkable except as noted in HPI and below Physical Exam Vital Signs: Last Vital Signs BP 142/78 H 03/29/23 13:24 Const General: cooperative, healthy appearing and comfortable Nutritional Appearance: average body habitus Orientation/consciousness: patient oriented x3 Neuro Other: mild decreased facial expression and blink Mild increased tone left UE FFM mildly decrease dleft UE Gait- decreased arm swing on the left and stooped in lower back General: patient oriented x3 Cranial nerves: Yes Facial sensation intact/muscles of mastication intact, Yes Nystagmus not present, Yes Normal facial strength present and Yes Midline tongue present Cognition (Neuro): normal cognition Assessment & Plan Assessment & Plan (1) Restless legs syndrome (RLS): Code(s): G25.81 - Restless legs syndrome (2) Obstructive sleep apnea: Code(s): G47.33 - Obstructive sleep apnea (adult) (pediatric) (3) Multiple system atrophy: Comment: Sees Dr. Berlin Jade @ [facility] in [place]- Code(s): G90.3 - Multi-system degeneration of the autonomic nervous system Plan Continue to use APAP 10-12 cmH2O as patient experiences good clinical effects. Compliance stressed. Continue horizant Er 600mg bid every other day, and one daily every other day. Continue carbidopa/levodopa - same dose Advised patient to try Ropinirole 2 mg ER at 6:30 pm. Medications: New ropinirole ER 2 mg PO BEDTIME 30 days 30 tabs 2RF ropinirole ER 2 mg PO BEDTIME 7 days 7 tabs 3RF Coding Level of Care Code Est Pt Level 4 (85092) Diagnoses Restless legs syndrome (RLS) G25.81 Obstructive sleep apnea G47.33 Multiple system atrophy G90.3
[2023-03-29 13:24] VITALS: BP 142/78
== END 2023-03-29 14:02 | disposition home or self-care (01) ==
PROVIDERS: PCP Internal Medicine; Visit Provider Nurse Practitioner Family
DX: G25.81 Restless legs syndrome (principal); G47.33 Obstructive sleep apnea (adult) (pediatric); G90.3 Multi-system degeneration of the autonomic nervous system
CPT/HCPCS: 99214

== ENCOUNTER → 2023-03-29 13:16 | Outpatient (BNVA) | payer MEDICARE, SELFPAY | PROVIDERS: PCP Internal Medicine; Visit Provider Nurse Practitioner Family | DX: G47.33 Obstructive sleep apnea (adult) (pediatric) (principal); G25.81 Restless legs syndrome; G90.3 Multi-system degeneration of the autonomic nervous system | CPT/HCPCS: 99212 ==

== ENCOUNTER 2023-03-30 11:05 | Outpatient (REF) | payer MEDICARE, SELFPAY ==
[2023-03-30 11:12] LABS: MANUAL DIFF FLAG NO
[2023-03-30 11:28] LABS: Basophils Absolute Auto 0.1 X10*3/uL (0.0-0.2); Basophils Percent Auto 0.6 % (0-2); Eosinophils Absolute Auto 0.2 X10*3/uL (0.0-0.4); Eosinophils Percent Auto 2.8 % (0-4); Hematocrit 47.3 % (42.0-52.0); Hemoglobin 16.1 g/dl (14.0-18.0); Imm Gran Abs Auto 0.01 X10*3/uL (0.00-0.03); Imm Gran Pct Auto 0.1 % (0.0-0.4); Lymphocytes Absolute Auto 3.5 X10*3/uL (1.2-4.9); Lymphocytes Percent Auto 44.1 % (20-40); Mean Corpuscular Hemoglobin 30.7 pg (27.0-33.0); Mean Corpuscular Volume 90.1 fL (80.0-98.0); Mean Platelet Volume 9.4 fL (9.4-12.4); Monocytes Absolute Auto 0.7 X10*3/uL (0.1-1.2); Monocytes Percent Auto 9.4 % (2-11); Neutrophils Absolute Auto 3.4 x10*3/uL (2.0-8.3); Platelet Count 237 X10*3/uL (160-400); Red Blood Count 5.25 X10*6/uL (4.60-5.80); Red Cell Distribution Width 13.2 % (11.0-16.0); White Blood Count 7.8 X10*3/uL (4.8-10.8)
[2023-03-30 11:31] LABS: Appearance Urine Clear; Color Urine Yellow; Glucose Urine UA Negative (Negative); Leukocyte Esterase Urine Trace (Negative); Nitrite Urine Negative (Negative); PH 6.5 (5.0-9.0); Specific Gravity - Urine 1.025 (1.005-1.025); UMIC TRIGGER UACC YES; Urine Blood Negative (Negative); Urine Ketones Negative (Negative); Urine Protein Negative (Neg-Trace)
[2023-03-30 11:40] LABS: Bacteria Urine None Seen (None Seen); Hyaline Casts Urine 0-2 /LPF (0-2); RBC Urine 0-2 /HPF (0-2); Squamous Epithelial Cell Urine 0-2 /HPF (0-2); WBC Urine 0-5 /HPF (0-5)
[2023-03-30 11:48] LABS: Alanine Aminotransferase 18 U/L (0-40); Albumin Level 4.3 g/dL (3.5-5.0); Alkaline Phosphatase 39 U/L (39-117); Anion Gap 10 (12-20); Aspartate Amino Transferase 28 U/L (5-37); Blood Urea Nitrogen 15 mg/dL (9-16); Calcium 9.2 mg/dL (8.4-10.2); Carbon Dioxide 29 mmol/L (22-29); Chloride 108 mmol/L (96-108); Cholesterol 194 mg/dL (<200); Estimated Glomerular Filt Rate > 60; Glucose Fasting 88 mg/dL (60-99); HDL Cholesterol 33 mg/dL (>40); LDL Cholesterol Calculated 136 mg/dL (<100); Magnesium 2.6 mg/dL (1.6-2.6); Potassium 3.7 mmol/L (3.3-5.1); Sodium 143 mmol/L (135-145); Total Protein 7.6 g/dL (6.5-8.0); Triglycerides 128 mg/dL (<150)
[2023-03-30 12:10] LABS: PSA,Total (Free>4and<10) 2.29 ng/mL (0.00-4.00)
[2023-03-30 12:11] LABS: Vitamin D 25-OH Total 45.5 ng/mL (>30)
== END 2023-03-30 11:06 | disposition home or self-care (01) ==
LOC: HO.LNP 11:05
PROVIDERS: Visit Provider Internal Medicine
DX: N40.0 Benign prostatic hyperplasia without lower urinary tract symptoms (principal); E78.00 Pure hypercholesterolemia, unspecified; D72.820 Lymphocytosis (symptomatic); I10 Essential (primary) hypertension; G25.81 Restless legs syndrome; Z12.5 Encounter for screening for malignant neoplasm of prostate; E55.9 Vitamin D deficiency, unspecified
CPT/HCPCS: 80053; 80061; 81001; 82306; 83735; 84153; 85025

== ENCOUNTER 2024-01-01 08:29 | Outpatient (REF) | payer MEDICARE, SELFPAY | END 2024-01-01 08:30 | disposition home or self-care (01) | LOC: HO.SH 08:29 | PROVIDERS: Visit Provider Internal Medicine | DX: Z01.118 Encounter for examination of ears and hearing with other abnormal findings (principal); H90.3 Sensorineural hearing loss, bilateral | CPT/HCPCS: 92557; 92567 ==

== ENCOUNTER 2024-04-05 11:13 | Outpatient (REF) | payer MEDICARE, SELFPAY ==
[2024-04-05 11:33] LABS: Appearance Urine Clear; Basophils Absolute Auto 0.1 X10*3/uL (0.0-0.2); Basophils Percent Auto 0.8 % (0-2); Color Urine Yellow; Eosinophils Absolute Auto 0.3 X10*3/uL (0.0-0.4); Eosinophils Percent Auto 3.8 % (0-4); Glucose Urine UA Negative (Negative); Hematocrit 45.3 % (42.0-52.0); Hemoglobin 15.6 g/dl (14.0-18.0); Imm Gran Abs Auto 0.03 X10*3/uL (0.00-0.03); Imm Gran Pct Auto 0.4 % (0.0-0.4); Leukocyte Esterase Urine Trace (Negative); Lymphocytes Absolute Auto 3.3 X10*3/uL (1.2-4.9); Lymphocytes Percent Auto 44.9 % (20-40); MANUAL DIFF FLAG NO; Mean Corpuscular HGB Conc 34.4 g/dl (31.0-36.0); Mean Corpuscular Hemoglobin 31.5 pg (27.0-33.0); Mean Corpuscular Volume 91.3 fL (80.0-98.0); Mean Platelet Volume 9.1 fL (9.4-12.4); Monocytes Absolute Auto 0.6 X10*3/uL (0.1-1.2); Monocytes Percent Auto 8.2 % (2-11); Neutrophils Absolute Auto 3.1 x10*3/uL (2.0-8.3); Neutrophils Percent Auto 41.9 % (45-73); Nitrite Urine Negative (Negative); Platelet Count 232 X10*3/uL (160-400); Red Blood Count 4.96 X10*6/uL (4.60-5.80); Red Cell Distribution Width 13.4 % (11.0-16.0); Specific Gravity - Urine 1.025 (1.005-1.025); UMIC TRIGGER UACC YES; Urine Blood Negative (Negative); Urine Ketones Trace mg/dL (Negative); Urine Protein Negative (Neg-Trace); White Blood Count 7.3 X10*3/uL (4.8-10.8)
[2024-04-05 11:41] LABS: Bacteria Urine None Seen (None Seen); Hyaline Casts Urine 0-2 /LPF (0-2); RBC Urine 0-2 /HPF (0-2); Squamous Epithelial Cell Urine 0-2 /HPF (0-2); WBC Urine 0-5 /HPF (0-5)
[2024-04-05 11:55] LABS: Alanine Aminotransferase 13 U/L (0-40); Albumin Level 4.2 g/dL (3.5-5.0); Alkaline Phosphatase 41 U/L (39-117); Anion Gap 10 (12-20); Aspartate Amino Transferase 34 U/L (5-37); Bilirubin Total 0.8 mg/dL (0.0-1.0); Blood Urea Nitrogen 16 mg/dL (9-16); Carbon Dioxide 28 mmol/L (22-29); Chloride 110 mmol/L (96-108); Cholesterol 178 mg/dL (<200); Estimated Glomerular Filt Rate > 60; Glucose Fasting 92 mg/dL (60-99); HDL Cholesterol 34 mg/dL (>40); LDL Cholesterol Calculated 119 mg/dL (<100); Sodium 144 mmol/L (135-145); Total Protein 7.1 g/dL (6.5-8.0); Triglycerides 127 mg/dL (<150)
[2024-04-05 12:06] LABS: PSA,Total (Free>4and<10) 2.54 ng/mL (0.00-4.00)
== END 2024-04-05 11:14 | disposition home or self-care (01) ==
LOC: HO.LNP 11:13
PROVIDERS: Visit Provider Internal Medicine
DX: N40.0 Benign prostatic hyperplasia without lower urinary tract symptoms (principal); E78.00 Pure hypercholesterolemia, unspecified; G23.9 Degenerative disease of basal ganglia, unspecified; D72.820 Lymphocytosis (symptomatic); I10 Essential (primary) hypertension; Z12.5 Encounter for screening for malignant neoplasm of prostate
CPT/HCPCS: 80053; 80061; 81001; 84153; 85025

== ENCOUNTER 2025-04-10 11:09 | Outpatient (REF) | payer MEDICARE, SELFPAY ==
--- OUTSIDE RECORDS SUMMARY | 2023-12-12 05:27 | XMS_ITS ---
Author Organization Neil Lewis MD Address [address] [place] [phone] Care Team Providers Care People Manager Name Role Phone Neil Lewis Primary Care Provider REASON FOR VISIT New Referral Request Encounters Encounter Location Date Provider Diagnosis Neil Lewis MD [address] [facility] [address] [place] [phone] 12/12/2023 Neil Lewis Plan Of Treatment Next Appt Details Provider Name:Neil Anderson ier, 04/17/2025 08:30:00 AM, [address] [facility], Suite [facility], [place], [place], [phone], Progress Notes * Bud ALVARADO EDOB:[birth year] (68 yo M)Acc No.[id number]:12/12/2023 Patient: Bud Sumner :1955 A ge:68 Y S ex:Male Address:[place] [address] * true * Date: Generated for Printi ng/Faxing/eTransmitting on: 06/10/2024 02:02 PM EST
--- OUTSIDE RECORDS SUMMARY | 2023-12-15 06:14 | XMS_ITS ---
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 Name Role Phone Neil Lewis Primary Care Provider [phone] Encounters Encounter Location Date Provider Diagnosis Neil Lewis MD [address] [facility] [address] [place] [phone] 12/15/2023 Neil Lewis Plan Of Treatment Next Appt Details Provider Name:Neil barboza, 04/17/2025 08:30:00 AM, [address] [place] [address], [address] [place] [address], [phone], Progress Notes * Bud ALVARADO EDOB:[birth year] (68 yo M)Acc No.[id number]:12/15/2023 Patient: Holley Bud martinez :1955 A ge:68 Y S ex:Male Address:[place] [address] Subjective: * Chief Complaints: * * Medical History: * Surgical History: * Hospitalization/Major Diagno stic Procedure: * Medications: Objective: Assessment: Plan: * Treatment: * Procedure Codes: * true * Date: Generated for Printi ng/Nick/Dino on: 06/10/2024 02:02 PM EST
--- OUTSIDE RECORDS SUMMARY | 2024-03-12 04:00 | XMS_ITS ---
Author Organization Neil Lewis MD Address [address] [place] [phone] Care Team Providers Care Blockers Skiver Name Role Phone Neil Lewis Primary Care Provider [phone] REASON FOR VISIT HD FLU SHOT Immunizations Vaccine Route Administration Date Status Comme nts Influenza High Dose IM Intramuscular 03/12/2024 Administer ed Encounters Encounter Location Date Provider Diagnosis Neil Lewis MD 10 [facility] [address] [place] [phone] 03/12/2024 Neil Lewis Encounter for immunization Z23 Assessments Encounter Date Diagnosis (ICD Code) Assessment Notes Treatment Notes Treatment Clinical Notes Section Notes 03/12/2024 Encounter for immunization (ICD-10 - Z23) Plan Of Treatment Next Appt Details Provider Name:Neil Anderson ier, 04/17/2025 08:30:00 AM, [address] [facility], [address] [place] [address], [phone], Progress Notes * Bud ALVARADO EDOB:[birth year] (68 yo M)Acc No.[id number]:03/12/2024 Progress Note Patient: Holley Bud martinez Provider: Roma Lewis MD :1955 A ge:68 Y S ex:Male Date:03/12/2024 Address:[address] [id number] Subjective: * Chief Complaints: * H D FLU SHOT * Medical History: * Surgical History: * Hospitalization/Major Diagno stic Procedure: * Medications: Objective: Assessment: * Assessment: 1. E ncounter for immunization - Z23 (Primary) Plan: * Treatment: * Immunizations: Influenza High Dose : 0.5 mL (Dose No:1) (Route: Intramuscular) given by Saundra Hassan on Right Deltoid * Procedure Codes: 9 0662 FLU VACC PRSV FREE INC [id number] ADMN FLU VAC NO FEE SCHED SAME DAY * * Sign off status: Completed true * Provider: Roma Lewis MD Date: Generated for Lilibeth ware/Nick/Reginasmitting on: 06/10/2024 02:02 PM EST
--- OUTSIDE RECORDS SUMMARY | 2024-04-05 02:30 | XMS_ITS ---
Author Organization Neil Lewis MD Address [address] [place] [phone] Care Team Providers Care Accountancy Professor Name Role Phone Neil Lewis Primary Care Provider Results Component Value Reference Range Notes Complete Blood Count Auto Di ff Reviewed date:04/05/2024 12:36:46 PM Interpretation: Performing Lab:[facility], [address] [place] [phone] Notes/Report: White Blood Count 7.3 4.8-10.8 X10*3/uL Red Blood Count 4.96 4.60-5.80 X10*6/uL Hemoglobin 15.6 14.0-18.0 g/dl Hematocrit 45.3 42.0-52.0 % Mean Corpuscular Volume 91.3 80.0-98.0 fL Mean Corpuscular Hemoglobin 31.5 27.0-33.0 pg Mean Corpuscular HGB Conc 34.4 31.0-36.0 g/dl Red Cell Distribution Width 13.4 11.0-16.0 % Platelet Count 232 160-400 X10*3/uL Mean Platelet Volume 9.1 9.4-12.4 fL Neutrophils Percent Auto 41.9 45-73 % Imm Gran Pct Auto 0.4 0.0-0.4 % Lymphocytes Percent Auto 44.9 20-40 % Monocytes Percent Auto 8.2 2-11 % Eosinophils Percent Auto 3.8 0-4 % Basophils Percent Auto 0.8 0-2 % NRBC Pct Auto 0.0 0.0-0.2 /100WBC Neutrophils Absolute Auto 3.1 2.0-8.3 x10*3/u L Imm Gran Abs Auto 0.03 0.00-0.03 X10*3/uL Lymphocytes Absolute Auto 3.3 1.2-4.9 X10*3/u L Monocytes Absolute Auto 0.6 0.1-1.2 X10*3/uL Eosinophils Absolute Auto 0.3 0.0-0.4 X10*3/u L Basophils Absolute Auto 0.1 0.0-0.2 X10*3/uL NRBC Abs Auto 0.000 0.0-0.012 X10*3/uL Comprehensive [place]. Panel Fa st Reviewed date:04/05/2024 05:06:09 PM Interpretation: Performing Lab:[facility], [address] [place] [phone] Notes/Report: Sodium 144 135-145 mmol/L Potassium 4.0 3.3-5.1 mmol/L Chloride 110 96-108 mmol/L Carbon Dioxide 28 22-29 mmol/L Anion Gap 10 12-20 Blood Urea Nitrogen 16 9-16 mg/dL Creatinine 0.92 0.5-1.4 mg/dL Estimated Glomerular Filt Rate > 60 NOTE: For -[place] individuals, multiply the result by 1.210. Chronic Kidney Disease: Estimated GFR < 60 mL/min/1.73m2 Severe Kidney Disease: Estimated GFR < 15 mL/min/1.73m2 Glucose Fasting 92 60-99 mg/dL Calcium 9.0 8.4-10.2 mg/dL Bilirubin Total 0.8 0.0-1.0 mg/dL Aspartate Amino Transferase 34 5-37 U/L Alanine Aminotransferase 13 0-40 U/L Total Protein 7.1 6.5-8.0 g/dL Albumin Level 4.2 3.5-5.0 g/dL Alkaline Phosphatase 41 39-117 U/L Lipid Panel Reviewed date:04/05/2024 12:36:08 PM Interpretation: Performing Lab:[facility], [address] [place] [phone] Notes/Report: Triglycerides 127 <150 mg/dL Desirable Triglyceride: less than 150 mg/dL Borderline High Triglyceride 150-199 mg/dL High Triglyceride: 200-499 mg/dL Very High Triglyceride: greater than or equal to 5OO mg/dL Cholesterol 178 <200 mg/dL Desirable Cholesterol: less than 200 mg/dL Borderline High Cholesterol: 200-239 mg/dL High Cholesterol: greater than 239 mg/dL LDL Cholesterol Calculated 119 <100 mg/dL Desirable LDL: less than 100 mg/dL Near Optimal/Above Optimal LDL: 110-129 mg/dL Borderline High LDL: 130-159 mg/dL High LDL: 160-189 mg/dL Very High LDL: greater than or equal to 190 mg/dL HDL Cholesterol 34 >40 mg/dL Desirable HDL: greater than 40 mg/dL Note: This HDL assay may give artificially low results in patients with liver disease. PSA,Total (Free>4and<10) Reviewed date:04/05/2024 12:36:54 PM Interpretation: Performing Lab:[facility], [address] [place] [phone] Notes/Report: PSA,Total (Free>4and<10) 2.54 0.00-4.00 ng/mL A Free PSA was not performed: The percentage of Free PSA can be used to enhance the differentiation of prostate cancer from benign prostatic disease in subjects whose PSA levels are between 4.0 and 10.0 ng/mL. For subjects whose PSA levels are below 4.0 or above 10.0 ng/mL, the risk of prostate cancer is determined on the basis of the PSA alone. Therefore the % Free PSA is recommended only for those subjects whose PSA levels are between 4.0 and 10.0 ng/mL. PSA methodology: Campbell Alinity i Chemiluminescent Microparticle Immunoassay (CMIA) UA ClnCatch+Micro w/rflx Cul t Reviewed date:04/05/2024 05:05:52 PM Interpretation: Performing Lab:[facility], [address] [place] [phone] Notes/Report: Urine, Clean Catch Color Urine Yellow Appearance Urine Clear PH 6.0 5.0-9.0 Glucose Urine UA Negative Negative mg/dL Urine Blood Negative Negative Specific [place] - Urine 1.025 1.005-1.025 Urine Protein Negative Neg-Trace mg/dL Urine Ketones Trace Negative mg/dL Nitrite Urine Negative Negative Leukocyte Esterase Urine Trace Negative RBC Urine 0-2 0-2 /HPF WBC Urine 0-5 0-5 /HPF Squamous Epithelial Cell Urine 0-2 0-2 /HPF Bacteria Urine None Seen None Seen Hyaline Casts Urine 0-2 0-2 /LPF REASON FOR VISIT FASTING LABS Encounters Encounter Location Date Provider Diagnosis Neil Lewis MD [address] [place] [address] Drive [address] [place], [place] [phone] 04/05/2024 Neil Lewis Prostatism N40.0 ; P ure hypercholesterolemia E78.00 ; Multiple system atrophy G23.9 ; Lymphocytosis D72.820 and Essential hypertension I10 Assessments Encounter Date Diagnosis (ICD Code) Assessment Notes Treatment Notes Treatment Clinical Notes Section Notes 04/05/2024 Prostatism (ICD-10 - N40.0) 04/05/2024 Pure hypercholesterolemia (ICD-10 - E78.00) 04/05/2024 Multiple system atro phy (ICD-10 - G23.9) 04/05/2024 Lymphocytosis (ICD-1 0 - D72.820) 04/05/2024 Essential hypertensi on (ICD-10 - I10) Plan Of Treatment Next Appt Details Provider Name:Neil Anderson ier, 04/17/2025 08:30:00 AM, [address] [place] [address], [address], [place], [place], [phone], Progress Notes * Bud ALVARADO EDOB:[birth year] (69 yo M)Acc No.[id number]:04/05/2024 Progress Note Patient: Bud LERNER Provider: Roma Lewis MD :1955 A ge:68 Y S ex:Male Date:04/05/2024 Address:[address] [place], [place] [phone] Subjective: * Chief Complaints: * 1 . FASTING LABS. * Medical History: Objective: * Vitals: Assessment: * Assessment: 1. P rostatism - N40.0 (Primary) 2 . P ure hypercholesterolemia - E78.00? 3. M ultiple system atrophy - G23.9 4 . L ymphocytosis - D72.820 5 . E ssential hypertension - I10 Plan: * Treatment: 2. P ure hypercholesterolemia L AB: Complete Blood Count Auto Diff (Collection Date & Time - 04/05/2024 07:30 AM) L AB: Comprehensive [place]. Panel Fast (Collection Date & Time - 04/05/2024 07:30 AM) L AB: Lipid Panel (Collection Date & Time - 04/05/2024 07:30 AM) L AB: PSA,Total (Free>4and<10) (Collection Date & Time - 04/05/2024 07:30 AM) L AB: UA ClnCatch+Micro w/rflx Cult (Collection Date & Time - 04/05/2024 07:30 AM) 3. M ultiple system atrophy L AB: Complete Blood Count Auto Diff (Collection Date & Time - 04/05/2024 07:30 AM) L AB: Comprehensive [place]. Panel Fast (Collection Date & Time - 04/05/2024 07:30 AM) L AB: Lipid Panel (Collection Date & Time - 04/05/2024 07:30 AM) L AB: PSA,Total (Free>4and<10) (Collection Date & Time - 04/05/2024 07:30 AM) L AB: UA ClnCatch+Micro w/rflx Cult (Collection Date & Time - 04/05/2024 07:30 AM) 4. L ymphocytosis L AB: Complete Blood Count Auto Diff (Collection Date & Time - 04/05/2024 07:30 AM) L AB: Comprehensive [place]. Panel Fast (Collection Date & Time - 04/05/2024 07:30 AM) L AB: Lipid Panel (Collection Date & Time - 04/05/2024 07:30 AM) L AB: PSA,Total (Free>4and<10) (Collection Date & Time - 04/05/2024 07:30 AM) L AB: UA ClnCatch+Micro w/rflx Cult (Collection Date & Time - 04/05/2024 07:30 AM) 5. E ssential hypertension L AB: Complete Blood Count Auto Diff (Collection Date & Time - 04/05/2024 07:30 AM) L AB: Comprehensive [place]. Panel Fast (Collection Date & Time - 04/05/2024 07:30 AM) L AB: Lipid Panel (Collection Date & Time - 04/05/2024 07:30 AM) L AB: PSA,Total (Free>4and<10) (Collection Date & Time - 04/05/2024 07:30 AM) L AB: UA ClnCatch+Micro w/rflx Cult (Collection Date & Time - 04/05/2024 07:30 AM) * Procedure Codes: 3 6415 VENIPUNCT, ROUTINE* * * The named appointment provid er may or may not be the originator of this progress note, and it is not deemed complete until electronically signed by the appointment provider. Sign off status: Pending * Provider: Roma Lewis MD Date: 06/05/2023 Generated for Lilibeth ware/Nick/Rashawnitting on: 06/10/2024 02:02 PM EST
--- OUTSIDE RECORDS SUMMARY | 2024-04-12 03:30 | XMS_ITS ---
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 Role Phone Neil Lewis Primary Care Provider Allergies No Known Allergies Results Component Value Reference Range Notes Occult Blood, Stool, Guaiac Reviewed date:04/12/2024 01:18:48 PM Interpretation:Negative Performing Lab: Notes/Report: Negative Occult Blood, Stool, Guaiac Neg REASON FOR VISIT review labs Medications Medication SIG (Take, Route, Frequency, Duration) Notes Start Date End Date Status Tylenol Extra Strength 500 MG 1 tablet as needed Orally every 6 hrs Active Flonase Allergy Relief 50 MCG/ACT 1 spray in each nostril Nasally Once a day for 30 days Not-Taking Breo Ellipta 200-25 MCG/INH 1 puff Inhalation Once a day for 30 days 05/10/2016 Not-Taking Ambien 5 MG 1 tablet at bedtime Orally Once a day 10/10/2013 Not-Taking Ventolin HFA * 108 (90 Base) MCG/ACT 2 puffs as needed Inhalation every 4 hrs for 30 days 04/01/2016 Not-Taking Horizant 600 MG 1 tablet in the even ing alternating with 1 tablet twice a day Orally Once a day Active Carbidopa-Levodopa ER 50-200 MG 1 tablet Orally once a day Active Sinemet 25-100 MG 1.5 tablets Orally tid Active Lisinopril 5 MG 1 tablet Orally Once a day 03/17/2022 Active Tamsulosin HCl 0.4 MG TAKE 1 CAPSULE BY MOUTH TWICE DAILY Active Social History Tobacco Use: Social History Observation Description Date Details (start date - stop date) Never Smoker NA - NA Tobacco Use/Smoking Question Answer Notes Patient is a nonsmoker Additional Findings: Tobacco Non-User Cu rrent non-smoker, currently using no form of tobacco Alcohol Screen Question Answer Notes Did you have a drink containing alcohol in the p ast year? 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 ; Lymphocytosis D72.820 ; Essential hypertension I10 ; Right hydrocele N43.3 ; Prostatism N40.0 ; Pure hypercholesterolemia E78.00 ; Colon cancer screening Z12.11 and Depression screening Z13.31 Assessments Encounter Date Diagnosis (ICD Code) Assessment Notes Treatment Notes Treatment Clinical Notes Section Notes 04/12/2024 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 and doing well with it, will continue current regiment 04/12/2024 Lymphocytosis (ICD-1 0 - D72.820) has resolved, will continue to monitor 04/12/2024 Essential hypertensi on (ICD-10 - I10) stable, will continue current regiment 04/12/2024 Right hydrocele (ICD -10 - N43.3) 04/12/2024 Prostatism (ICD-10 - N40.0) stable, will cntiue curent regiment 04/12/2024 Pure hypercholesterolemia (ICD-10 - E78.00) stable, will continue current regiment 04/12/2024 Colon cancer screeni ng (ICD-10 - Z12.11) guaiac negative 04/12/2024 Depression screening (ICD-10 - Z13.31) negative screen Plan Of Treatment Medication Medication Name Sig Start Date Stop Date Notes Horizant 600 MG 1 tablet in the even ing alternating with 1 tablet twice a day Orally Once a day Carbidopa-Levodopa ER 50-200 MG 1 tablet Orally once a day Sinemet 25-100 MG 1.5 tablets Orally tid Lisinopril 5 MG 1 tablet Orally Once a day 03/17/2022 Tamsulosin HCl 0.4 MG TAKE 1 CAPSULE BY MOUTH TWICE DAILY Treatment Notes Assessment Notes Multiple system atrophy stable and doing well with it, will continue current regiment Lymphocytosis has resolved, will c ontinue to monitor Essential hypertension stable, will cont inue current regiment Prostatism stable, will cntiue curent regiment Pure hypercholesterolemia stable, will c ontinue current regiment Colon cancer screening guaiac negative Depression screening negative screen Next Appt Details Follow Up: 6 Months, Reason: Provider Name:Neil Anderson ier, 04/17/2025 08:30:00 AM, [address] [place] [address], [address], [place], [place], [phone], Progress Notes * Bud ALVARADO EDOB:[birth year] (68 yo M)Acc No.[id number]:04/12/2024 Patient: Holley blairBud mayes Alpesh Provider: Roma Lewis MD :1955 A ge:68 Y S ex:Male Date:04/12/2024 Address:[address] [place] [id number] Subjective: * Chief Complaints: * R eview labs * HPI: D epression Screening: PHQ-9 L ittle interest or pleasure in doing things N ot at all, F eeling down, depressed, or hopeless N ot at all, T rouble falling or staying asleep, or sleeping too much N ot at all, F eeling tired or having little energy N ot at all, P oor appetite or overeating N ot at all, F eeling bad about yourself or that you are a failure, or have let yourself or your family down N ot at all, T rouble concentrating on things, such as reading the newspaper or watching television N ot at all, M oving or speaking so slowly that other people could have noticed; or the opposite, being so fidgety or restless that you have been moving around a lot more than usual N ot at all, T houghts that you would be better off or of hurting yourself in some way N ot at all, T otal Score 0 . I nterpretation and Intervention D epression Screening Findings N egative, F ollow-Up for Depression : review of PHQ-9 found negative result, no follow-up needed. C ommunication Needs: Communication Needs D oes the patient have a hearing impairment N o, D oes the patient have a vision impairment? Y es, I f yes, what is the vision impairment? G lasses, D oes the patient have a cognition impairment? N o. F all Risk: History H ave you had any falls with injury in the past year? N o, H ave you had two or more falls in the past year? N o. S SYDNEY Questions: SDOH Questions I n the past year have you been worried about losing housing? N o, I n the past year have you or any family members you live with been unable to get any of the following when it was really needed? Check all that apply: N one. S ymptom(s): patient is a 68 yo male here for visit with review of recent labs and follow up of chronic issues. * ROS: G eneral/Constitutional: Patient denies f atigue, headache. C hange in appetite?denies. C hills d enies. F ever d enies. O phthalmologic: Blurred vision d enies. D ischarge d enies. P ain d enies. E NT: Patient denies d ecreased sense of smell, any loss of taste, sore throat. D ecreased hearing d enies. S ore throat d enies. S wollen glands?denies. E ndocrine: Cold intolerance d enies. E xcessive thirst d enies. H eat intolerance d enies. W eight loss d enies. R espiratory: Cough d enies. S hortness of breath at rest d enies. S hortness of breath with exertion d enies. W heezing d enies. C ardiovascular: Chest pain at rest d enies. C hest pain with exertion?denies. I rregular heartbeat d enies. S hortness of breath d enies. ? G astrointestinal: Abdominal pain d enies. C hange in bowel habits d enies. D iarrhea d enies. N ausea d enies. R ectal bleeding d enies. V omiting d enies . G enitourinary: Blood in urine d enies. D ifficulty urinating d enies. F requent urination d enies. M usculoskeletal: Patient denies m uscle aches. P ainful joints d enies. W eakness d enies. P eripheral Vascular: Patient denies r ed and blue toes. S kin: Dry skin d enies. I tching d enies. D enies?Mole(s), changes in moles, new moles or any lesions of concern. D enies P hotosensitivity. R ellis d enies. N eurologic: Dizziness d enies. F ainting d enies. H eadache?denies. * Medical History: * Surgical History: * Hospitalization/Major Diagno stic Procedure: * Family History: F ather: 60 yrs. M other: 57 yrs, diagnosed with Cancer. 1 sister(s) . 2 son(s) . . Father-SC Mother breast cancer, Denies mental health/substance abuse family history, Denies mental health/substance abuse family history, No pertinent family medical history. * Social History: T obacco Use: T obacco Use/Smoking P atient is a n onsmoker, A dditional Findings: Tobacco Non-User C urrent non-smoker, currently using no form of tobacco. D rugs/Alcohol: A lcohol Screen D id you have a drink containing alcohol in the past year? N o, P oints 0 , I nterpretation N egative. M iscellaneous: n o Caffeine. Children: yes. no Community involvements. Exercise: yes, 3-4 times per week walking cardio and stretching boxing. Home smoke detector use: yes. Living with: spouse. Marital status: . Occupation: works part-time. Pets: none. no Travel outside of the [place]. * Medications: T akingTylenol Extra Strength 500 MG Tablet 1 tablet as needed Orally every 6 hrsHorizant 600 MG Tablet Extended Release 1 tablet in the evening alternating with 1 tablet twice a day Orally Once a daySinemet 25-100 MG Tablet 1.5 tablets Orally tidCarbidopa-Levodopa ER 50-200 MG Tablet Extended Release 1 tablet Orally once a dayTamsulosin HCl 0.4 MG Capsule TAKE 1 CAPSULE BY MOUTH TWICE DAILY Lisinopril 5 MG Tablet 1 tablet Orally Once a dayTaking Tylenol Extra Strength 500 MG Tablet 1 tablet as needed Orally every 6 hrsTaking Horizant 600 MG Tablet Extended Release 1 tablet in the evening alternating with 1 tablet twice a day Orally Once a dayTaking Sinemet 25-100 MG Tablet 1.5 tablets Orally tidTaking Carbidopa-Levodopa ER 50-200 MG Tablet Extended Release 1 tablet Orally once a dayTaking Tamsulosin HCl 0.4 MG Capsule TAKE 1 CAPSULE BY MOUTH TWICE DAILY Taking Lisinopril 5 MG Tablet 1 tablet Orally Once a dayNot-Taking/PRNVentolin HFA * 108 (90 Base) MCG/ACT Aerosol Solution 2 puffs as needed Inhalation every 4 hrsBreo Ellipta 200-25 MCG/INH Aerosol Powder Breath Activated 1 puff Inhalation Once a dayFlonase Allergy Relief 50 MCG/ACT Suspension 1 spray in each nostril Nasally Once a dayAmbien 5 MG Tablet 1 tablet at bedtime Orally Once a dayMedication List reviewed and reconciled with the patientNot-Taking/PRN Ventolin HFA * 108 (90 Base) MCG/ACT Aerosol Solution 2 puffs as needed Inhalation every 4 hrsNot-Taking/PRN Breo Ellipta 200-25 MCG/INH Aerosol Powder Breath Activated 1 puff Inhalation Once a dayNot-Taking/PRN Flonase Allergy Relief 50 MCG/ACT Suspension 1 spray in each nostril Nasally Once a dayNot-Taking/PRN Ambien 5 MG Tablet 1 tablet at bedtime Orally Once a dayMedication List reviewed and reconciled with the patient * Allergies: N .K.D.A.yes[Allergies Verified] Objective: * Vitals: H t: 65.75, Wt:194, BMI:31.55, BP:142/64, Repeat BP:112/70 weight is down 3 pounds since 10-17-23. * P ast Orders: L ab:Complete Blood Count Auto Diff (Order Date - 04/05/2024) (Collection Date - 04/05/2024) Value Reference Range White Blood Count 7.3 4.8-10.8 - X10*3/uL Red Blood Count 4.96 4.60-5.80 - X10*6/uL Hemoglobin 15.6 14.0-18.0 - g/dl Hematocrit 45.3 42.0-52.0 - % Mean Corpuscular Volume 91.3 80.0-98.0 - fL Mean Corpuscular Hemoglobin 31.5 27.0-33.0 - pg Mean Corpuscular HGB Conc 34.4 31.0-36.0 - g/ dl Red Cell Distribution Width 13.4 11.0-16.0 - % Platelet Count 232 160-400 - X10*3/uL Mean Platelet Volume 9.1 L 9.4-12.4 - fL Neutrophils Percent Auto 41.9 L 45-73 - % Imm Gran Pct Auto 0.4 0.0-0.4 - % Lymphocytes Percent Auto 44.9 H 20-40 - % Monocytes Percent Auto 8.2 2-11 - % Eosinophils Percent Auto 3.8 0-4 - % Basophils Percent Auto 0.8 0-2 - % NRBC Pct Auto 0.0 0.0-0.2 - /100WBC Neutrophils Absolute Auto 3.1 2.0-8.3 - x10* 3/uL Imm Gran Abs Auto 0.03 0.00-0.03 - X10*3/uL Lymphocytes Absolute Auto 3.3 1.2-4.9 - X10* 3/uL Monocytes Absolute Auto 0.6 0.1-1.2 - X10*3/ uL Eosinophils Absolute Auto 0.3 0.0-0.4 - X10* 3/uL Basophils Absolute Auto 0.1 0.0-0.2 - X10*3/ uL NRBC Abs Auto 0.000 0.0-0.012 - X10*3/uL L ab:Lipid Panel (Order Date - 04/05/2024) (Collection Date - 04/05/2024) Value Reference Range Triglycerides 127 <150 - mg/dL Cholesterol 178 <200 - mg/dL LDL Cholesterol Calculated 119 H <100 - mg/dL HDL Cholesterol 34 L >40 - mg/dL L ab:PSA,Total (Free>4and<10) (Order Date - 04/05/2024) (Collection Date - 04/05/2024) Value Reference Range PSA,Total (Free>4and<10) 2.54 0.00-4.00 - ng/ mL L ab:UA ClnCatch+Micro w/rflx Cult (Order Date - 04/05/2024) (Collection Date - 04/05/2024) Value Reference Range Color Urine Yellow - Appearance Urine Clear - PH 6.0 5.0-9.0 - Glucose Urine UA Negative Negative - mg/dL Urine Blood Negative Negative - Specific [place] - Urine 1.025 1.005-1.025 - Urine Protein Negative Neg-Trace - mg/dL Urine Ketones Trace Negative - mg/dL Nitrite Urine Negative Negative - Leukocyte Esterase Urine Trace A Negative - RBC Urine 0-2 0-2 - /HPF WBC Urine 0-5 0-5 - /HPF Squamous Epithelial Cell Urine 0-2 0-2 - /HP F Bacteria Urine None Seen None Seen - Hyaline Casts Urine 0-2 0-2 - /LPF L ab:Comprehensive [place]. Panel Fast (Order Date - 04/05/2024) (Collection Date - 04/05/2024) Value Reference Range Sodium 144 135-145 - mmol/L Bilirubin Total 0.8 0.0-1.0 - mg/dL Aspartate Amino Transferase 34 5-37 - U/L Alanine Aminotransferase 13 0-40 - U/L Total Protein 7.1 6.5-8.0 - g/dL Albumin Level 4.2 3.5-5.0 - g/dL Alkaline Phosphatase 41 39-117 - U/L Potassium 4.0 3.3-5.1 - mmol/L Chloride 110 H 96-108 - mmol/L Carbon Dioxide 28 22-29 - mmol/L Anion Gap 10 L 12-20 - Blood Urea Nitrogen 16 9-16 - mg/dL Creatinine 0.92 0.5-1.4 - mg/dL Estimated Glomerular Filt Rate > 60 - Glucose Fasting 92 60-99 - mg/dL Calcium 9.0 8.4-10.2 - mg/dL * Examination: G eneral Examination: GENERAL APPEARANCE: w ell developed, well nourished, in no acute distress. HEAD: n ormocephalic, atraumatic. EYES: p upils equal, round, reactive to light and accommodation, sclera non-icteric. EARS: n ormal. ORAL CAVITY: m ucosa moist. THROAT: c lear. NECK/THYROID: n claude supple, full range of motion, no cervical lymphadenopathy, no bruits. SKIN: w arm and dry, no suspicious lesions/ , abnormal with lesion on scalp that is followed by derm. HEART: r egular rate and rhythm, S1, S2 normal, no murmurs.? LUNGS: c lear to auscultation bilaterally. ABDOMEN: s oft, nontender, nondistended, bowel sounds present, normal, no organomegaly , no masses palpable. RECTAL EXAM: n ormal tone, no external hemorrhoids, no masses palpable, prostate normal, stool guaiac negative. MALE GENITOURINARY: c ircumcised , abnormal rt hydrocele.? EXTREMITIES: n o clubbing, cyanosis, or edema. NEUROLOGIC: n onfocal, motor strength normal upper and lower extremities, sensory exam intact. Assessment: * Assessment: 1. 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 L ymphocytosis - D72.820 3 . E ssential hypertension - I10 4 . R ight hydrocele - N43.3 5 . P rostatism - N40.0?6. P ure hypercholesterolemia - E78.00 7 . C olon cancer screening - Z12.11 8 . Depression screening - Z13.31 Plan: * Treatment: 2. L ymphocytosis Notes: has resolved, will continue to monitor 3. E ssential hypertension Continue Lisinopril Tablet, 5 MG, 1 tablet, Orally, Once a day. Notes: stable, will continue current regiment 4. P rostatism Continue Tamsulosin HCl Capsule, 0.4 MG, TAKE 1 CAPSULE BY MOUTH TWICE DAILY. Notes: stable, will cntiue curent regiment 5. P ure hypercholesterolemia Notes: stable, will continue current regiment 6. C olon cancer screening L AB: Occult Blood, Stool, Guaiac N egative Value Reference Range O ccult Blood, Stool, Guaiac Neg Notes: guaiac negative??7.?Depression screening? Notes: negative screen?? * Procedure Codes: 8 2270 TEST FOR BLOOD, FECES * Preventive Medicine: Counseling: C are goal follow-up plan: C ounseling for abnormal BMI provided?Yes, A krzysztof Normal BMI Follow-up G scott encouragement to exercise. * Follow Up: 6 Months * * Sign off status: Completed true * Provider: Roma Lewis MD Date: 06/12/2023 Generated for Lilibeth ware/Nick/Dino on: 06/10/2024 02:01 PM EST History and Physical Notes * HPI (History of Present Illness) Category Sub-Category Detail Notes Category Not es Symptom(s) patient is a 68 yo male here for visit with review of recent labs and follow up of chronic issues. Depression Screening PHQ-9 Little inte rest or pleasure in doing things: Not at all Feeling down, depressed, or hopeless: No t at all Trouble falling or staying asleep, or sl eeping too much: Not at all Feeling tired or having little energy: N ot at all Poor appetite or overeating: Not at all Feeling bad about yourself o r that you are a failure, or have let yourself or your family down: Not at all Trouble concentrating on thi ngs, such as reading the newspaper or watching television: Not at all Moving or speaking so slowly that other people could have noticed; or the opposite, being so fidgety or restless that you have been moving around a lot more than usual: Not at all Thoughts that you would be b rashaun off or of hurting yourself in some way: Not at all Total Score: 0 Interpretation and Intervention Depression Carli canas Findings: Negative Follow-Up for Depression: : review of PH Q-9 found negative result, no follow-up needed SDOH Questions SDOH Questions In the past year have you been worried about losing housing?: No In the past year have you or any family members you live with been unable to get any of the following when it was really needed? Check all that apply:: None Fall Risk History Have you had any falls with injury i n the past year?: No Have you had two or more falls in the year?: No Communication Needs Communication Needs Does the patient have a hearing impairment: No Does the patient have a vision impairmen t?: Yes If yes, what is the vision impairment?: Glasses Does the patient have a cognition impair ment?: No Examination Category Sub-Category Detail Notes Category Not es General Examination GENERAL APPEARANCE: well dev eloped, well nourished, in no acute distress HEAD: normocephalic, atrau matic EYES: pupils equal, round, reactive to light and accommodation, sclera non-icteric EARS: normal THROAT: clear NECK/THYROID: neck supple, full ra nge of motion, no cervical lymphadenopathy, no bruits HEART: regular rate and rhy thm, S1, S2 normal, no murmurs LUNGS: clear to auscultatio n bilaterally ABDOMEN: soft, nontender, non distended, bowel sounds present, normal, no organomegaly , no masses palpable NEUROLOGIC: nonfocal, motor stre ngth normal upper and lower extremities, sensory exam intact SKIN: warm and dry, no padmini picious lesions/ , abnormal with lesion on scalp that is followed by derm EXTREMITIES: no clubbing, cyanosi s, or edema MALE GENITOURINARY: circumcised , abnorm al rt hydrocele RECTAL EXAM: normal tone, no exte rnal hemorrhoids, no masses palpable, prostate normal, stool guaiac negative ORAL CAVITY: mucosa moist
--- OUTSIDE RECORDS SUMMARY | 2024-08-02 03:00 | XMS_ITS ---
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 Name Role Phone Neil Lewis Primary Care Provider REASON FOR VISIT New Refill Request Medications Medication SIG (Take, Route, Fr equency, Duration) Notes Start Date End Date Status Lisinopril 5 MG 1 tablet Orally Once a day for 90 days 03/17/2022 Active Encounters Encounter Location Date Provider Diagnosis Neil Lewis MD [address] [facility] [address] [place] [phone] 08/02/2024 Neil Lewis Essential hypertension I10 Assessments Encounter Date Diagnosis (ICD Code) Assessment Notes Treatment Notes Treatment Clinical Notes Section Notes 08/02/2024 Essential hypertension (ICD-10 - I10) Plan Of Treatment Medication Medication Name Sig Start Date Stop Date Notes Lisinopril 5 MG 1 tablet Orally Once a day for 90 days Next Appt Details Provider Name:Neil barboza, 04/17/2025 08:30:00 AM, [address] [facility], [address] [place] [address], [phone], Progress Notes * Bud ALVARADO EDOB:[birth year] (69 yo M)Acc No.[id number]:08/02/2024 Patient: Bud LERNER :1955 A ge:69 Y S ex:Male Address:[address] [place] [phone] * Refills Refill Lisinopril Tablet, 5 MG, Orally, 90 Tablet, 1 tablet, Once a day, 90 days, Refills=3 * true * Date: Generated for Lilibeth ware/Nick/Rashawnitting on: 06/10/2024 02:01 PM EST
--- OUTSIDE RECORDS SUMMARY | 2024-08-06 10:54 | XMS_ITS ---
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 Role Phone Debbie Neil Primary Care Provider [phone] REASON FOR VISIT Jury Duty Encounters Encounter Location Date Provider Diagnosis Neil Lewis MD [address] [facility] [address] [place] [phone] 08/06/2024 Neil Lewis Plan Of Treatment Next Appt Details Provider Name:Neil Anderson ier, 04/17/2025 08:30:00 AM, [address] [facility] [address], Suite [facility], [place], [place], [phone], Progress Notes * Bud ALVARADO EDOB:[birth year] (69 yo M)Acc No.[id number]:08/06/2024 Patient: Bud LERNER :1955 A ge:69 Y S ex:Male Address:[place] [phone] * true * Date: Generated for Printi ng/Faxing/eTransmitting on: 06/10/2024 02:02 PM EST
--- OUTSIDE RECORDS SUMMARY | 2024-10-10 04:00 | XMS_ITS ---
Author Organization Neil Lewis MD Address [address] [place] [phone] Care Team Providers Care Medical Records Auditor Name Role Phone Neil Lewis Primary Care Provider Allergies No Known Allergies REASON FOR VISIT 6 month Medications Medication SIG (Take, Route, Frequency, Duration) Notes Start Date End Date Status Breo Ellipta 200-25 MCG/INH 1 puff Inhalation Once a day for 30 days 05/10/2016 Not-Taking Flonase Allergy Relief 50 MCG/ACT 1 spray in each nostril Nasally Once a day for 30 days Not-Taking Tamsulosin HCl 0.4 MG TAKE 1 CAPSULE BY MOUTH TWICE DAILY for 90 Active Ventolin HFA * 108 (90 Base) MCG/ACT 2 puffs as needed Inhalation every 4 hrs for 30 days 04/01/2016 Not-Taking Ambien 5 MG 1 tablet at bedtime Orally Once a day 10/10/2013 Not-Taking Carbidopa-Levodopa ER 50-200 MG 1 tablet Orally once a day Active Lisinopril 5 MG 1 tablet Orally Once a day for 90 days 03/17/2022 Active Sinemet 25-100 MG 1.5 tablets Orally tid Active Tylenol Extra Strength 500 MG 1 tablet as needed Orally every 6 hrs Active Horizant 600 MG 1 tablet in the even ing alternating with 1 tablet twice a day Orally Once a day Active Vital Signs Blood pressure systolic 122 mm Hg 10/11/19 25 Blood pressure diastolic 84 mm Hg 025 Height 65.75 in 10/10/2024 Weight 194 lbs 10/10/2024 BMI 31.55 kg/m2 10/10/2024 Encounters Encounter Location Date Provider Diagnosis Neil Lewis MD [address] [place], [place] [phone] 10/10/2024 Neil Lewis Multiple system atrophy 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 he still is driving and feels that at the rate of his decline he probably won't bee driving in a year. he still drives to [place] with no problems and does a lot of walking there 10/10/2024 Knee pain (ICD-10 - M25.569) going to see [facility]. has had 2 operations already on that knee Plan Of Treatment Treatment Notes Assessment Notes Multiple system atrophy getting graduall y worse/ he feels that his cognition is declining but the testing showed that it wasn't. he still is driving and feels that at the rate of his decline he probably won't bee driving in a year. he still drives to [place] with no problems and does a lot of walking there Knee pain going to see [facility]. h as had 2 operations already on that knee Next Appt Details Provider Name:Neil Anderson ier, 04/17/2025 08:30:00 AM, [address], [address], [place], [place], [phone], Progress Notes * Bud ALVARADO EDOB:[birth year] (69 yo M)Acc No.[id number]:10/10/2024 Progress Notes Patient: Bud LERNER Provider: Roma Lewis MD :1955 A ge:69 Y S ex:Male Date:10/10/2024 Address:[address] [place] [address], [place] , [id number] Subjective: * Chief Complaints: * 6 month * HPI: S ymptom(s): patient is a 69 yo male here for 6 month follow up visit. feels as though his cognition is getting worse. / still working out. going to [facility]. * ROS: G eneral/Constitutional: Denies C hills. D enies F atigue. D enies F ever. D enies H eadache. E NT: Denies S ore throat. R espiratory: Denies C ough. D enies S hortness of breath at rest. D enies S hortness of breath with exertion. G astrointestinal: Johanny D iarrhea. Prince enbreann N ausea. M usculoskeletal: Patient complaining of l eft knee pain seeing ortho 11-15-24. C omments l egs are doing a little better. going to see [facility] in october/ staying very active in order to keep his motor problems at bay. * Medical History: * Surgical History: * Hospitalization/Major Diagno stic Procedure: * Medications: T akingTylenol Extra Strength 500 MG Tablet 1 tablet as needed Orally every 6 hrs Horizant 600 MG Tablet Extended Release 1 tablet in the evening alternating with 1 tablet twice a day Orally Once a day Sinemet 25-100 MG Tablet 1.5 tablets Orally tid Carbidopa-Levodopa ER 50-200 MG Tablet Extended Release 1 tablet Orally once a day Lisinopril 5 MG Tablet 1 tablet Orally Once a day Tamsulosin HCl 0.4 MG Capsule TAKE 1 CAPSULE BY MOUTH TWICE DAILY Taking Tylenol Extra Strength 500 MG Tablet 1 tablet as needed Orally every 6 hrs Taking Horizant 600 MG Tablet Extended Release 1 tablet in the evening alternating with 1 tablet twice a day Orally Once a day Taking Sinemet 25-100 MG Tablet 1.5 tablets Orally tid Taking Carbidopa-Levodopa ER 50-200 MG Tablet Extended Release 1 tablet Orally once a day Taking Lisinopril 5 MG Tablet 1 tablet Orally Once a day Taking Tamsulosin HCl 0.4 MG Capsule TAKE 1 CAPSULE BY MOUTH TWICE DAILY Not-Taking/PRNVentolin HFA * 108 (90 Base) MCG/ACT Aerosol Solution 2 puffs as needed Inhalation every 4 hrs Breo Ellipta 200-25 MCG/INH Aerosol Powder Breath Activated 1 puff Inhalation Once a day Flonase Allergy Relief 50 MCG/ACT Suspension 1 spray in each nostril Nasally Once a day Ambien 5 MG Tablet 1 tablet at bedtime Orally Once a day Medication List reviewed and reconciled with the patientNot-Taking/PRN Ventolin HFA * 108 (90 Base) MCG/ACT Aerosol Solution 2 puffs as needed Inhalation every 4 hrs Not-Taking/PRN Breo Ellipta 200-25 MCG/INH Aerosol Powder Breath Activated 1 puff Inhalation Once a day Not-Taking/PRN Flonase Allergy Relief 50 MCG/ACT Suspension 1 spray in each nostril Nasally Once a day Not-Taking/PRN Ambien 5 MG Tablet 1 tablet at bedtime Orally Once a day Medication List reviewed and reconciled with the patient * Allergies: N .K.D.A.yes[Allergies Verified] Objective: * Vitals: H t: 65.75, Wt: 194, BMI:31.55, BP:122/84, Wt-k. * Examination: G eneral Examination: GENERAL APPEARANCE: a lert, well hydrated, in no distress.? HEAD: n ormocephalic. SKIN: g ood turgor. HEART: r egular rate and rhythm, no murmurs, rubs, gallops.? LUNGS: n o wheezes, rales, rhonchi, good air movement, clear to auscultation bilaterally. Assessment: * Assessment: 1. 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 K nee pain - M25.569 Plan: * Treatment: 2. K nee pain Notes: going to see [facility]. has had 2 operations already on that knee * Procedure Codes: * * Sign off status: Completed true * Provider: Roma Lewis MD Date: 0 10/10/2024 Generated for Lilibeth ware/Nick/Dino on: 06/10/2024 02:02 PM EST History and Physical Notes * HPI (History of Present Illness) Category Sub-Category Detail Notes Category Not es Symptom(s) patient is a 69 yo male here for 6 month follow up visit. feels as though his cognition is getting worse. / still working out. going to [facility] Examination Category Sub-Category Detail Notes Category Not es General Examination GENERAL APPEARANCE: alert, w ell hydrated, in no distress HEAD: normocephalic HEART: regular rate and rhy thm, no murmurs, rubs, gallops LUNGS: no wheezes, rales, r honchi, good air movement, clear to auscultation bilaterally SKIN: good turgor
--- OUTSIDE RECORDS SUMMARY | 2025-02-25 03:30 | XMS_ITS ---
Author Organization Neil Lewis MD Address [address] [place] [phone] Care Team Providers Care Inside Contractor Sales Name Role Phone Neil Lewis Primary Care Provider REASON FOR VISIT HDF Immunizations Vaccine Route Administration Date Status Comme nts Influenza High Dose IM Intramuscular 02/25/2025 Administer ed Encounters Encounter Location Date Provider Diagnosis Neil Lewis MD [address] [facility] [address] [place] [phone] 02/25/2025 Neil Lewis Encounter for administration of vaccine Z23 Assessments Encounter Date Diagnosis (ICD Code) Assessment Notes Treatment Notes Treatment Clinical Notes Section Notes 02/25/2025 Encounter for administration of vaccine (ICD-10 - Z23) Plan Of Treatment Next Appt Details Provider Name:Neil Anderson ier, 04/17/2025 08:30:00 AM, [address] [facility], [address] [place] [address], [phone], Progress Notes * Bud ALVARADO EDOB:[birth year] (69 yo M)Acc No.[id number]:02/25/2025 Progress Note Patient: Bud LERNER Provider: Roma Lewis MD :1955 A ge:69 Y S ex:Male Date:02/25/2025 Address:[id number] Subjective: * Chief Complaints: * 1 . HDF. * Medical History: Objective: * Vitals: Assessment: * Assessment: 1. E ncounter for administration of vaccine - Z23 (Primary) Plan: * Treatment: * Immunizations: Influenza High Dose : 0.5 mL (Dose No:1) (Route: Intramuscular) given by Saundra Hassan , Office Staff on Left Deltoid * Procedure Codes: 9 0662 FLU VACC PRSV FREE INC ANTIG, G0008 ADMN FLU VAC NO FEE SCHED SAME DAY * * The named appointment provid er may or may not be the originator of this progress note, and it is not deemed complete until electronically signed by the appointment provider. Sign off status: Pending * Provider: Roma Lewis MD Date: 0 02/25/2025 Generated for Lilibeth ware/Nick/Rashawnitting on: 06/10/2024 02:02 PM EST
--- OUTSIDE RECORDS SUMMARY | 2025-04-10 02:45 | XMS_ITS ---
Author Organization Neil Lewis MD Address [address] [place] [phone] Care Team Providers Care Cdl A Driver Name Role Phone Neil Lewis Primary Care Provider [phone] Results Component Value Reference Range Notes Complete Blood Count Auto Di ff (Not yet reviewed by provider) Interpretation: Performing Lab:[facility], [address] [place] [phone] Notes/Report: White Blood Count 7.1 4.8-10.8 X10*3/uL Red Blood Count 5.33 4.60-5.80 X10*6/uL Hemoglobin 16.4 14.0-18.0 g/dl Hematocrit 48.8 42.0-52.0 % Mean Corpuscular Volume 91.6 80.0-98.0 fL Mean Corpuscular Hemoglobin 30.8 27.0-33.0 pg Mean Corpuscular HGB Conc 33.6 31.0-36.0 g/dl Red Cell Distribution Width 13.1 11.0-16.0 % Platelet Count 258 160-400 X10*3/uL Mean Platelet Volume 9.3 9.4-12.4 fL Neutrophils Percent Auto 41.6 45-73 % Imm Gran Pct Auto 0.1 0.0-0.4 % Lymphocytes Percent Auto 45.1 20-40 % Monocytes Percent Auto 9.6 2-11 % Eosinophils Percent Auto 2.5 0-4 % Basophils Percent Auto 1.1 0-2 % NRBC Pct Auto 0.0 0.0-0.2 /100WBC Neutrophils Absolute Auto 3.0 2.0-8.3 x10*3/u L Imm Gran Abs Auto 0.01 0.00-0.03 X10*3/uL Lymphocytes Absolute Auto 3.2 1.2-4.9 X10*3/u L Monocytes Absolute Auto 0.7 0.1-1.2 X10*3/uL Eosinophils Absolute Auto 0.2 0.0-0.4 X10*3/u L Basophils Absolute Auto 0.1 0.0-0.2 X10*3/uL NRBC Abs Auto 0.000 0.0-0.012 X10*3/uL UA ClnCatch+Micro w/rflx Cul t (Not yet reviewed by provider) Interpretation: Performing Lab:[address] [phone] Notes/Report: Urine, Clean Catch Color Urine Yellow Appearance Urine Clear PH 6.0 5.0-9.0 Glucose Urine UA Negative Negative mg/dL Urine Blood Negative Negative Specific [place] - Urine 1.025 1.005-1.025 Urine Protein Negative Neg-Trace mg/dL Urine Ketones Negative Negative mg/dL Nitrite Urine Negative Negative Leukocyte Esterase Urine Trace Negative RBC Urine 0-2 0-2 /HPF WBC Urine 0-5 0-5 /HPF Squamous Epithelial Cell Urine 0-2 0-2 /HPF Calcium Oxalate Crystals Urine Present Bacteria Urine None Seen None Seen Hyaline Casts Urine 0-2 0-2 /LPF Lipid Panel Reviewed date:04/10/2025 12:44:15 PM Interpretation: Performing Lab:[address] [id number] Notes/Report: Triglycerides 109 <150 mg/dL Desirable Triglyceride: less than 150 mg/dL Borderline High Triglyceride 150-199 mg/dL High Triglyceride: 200-499 mg/dL Very High Triglyceride: greater than or equal to 5OO mg/dL Cholesterol 184 <200 mg/dL Desirable Cholesterol: less than 200 mg/dL Borderline High Cholesterol: 200-239 mg/dL High Cholesterol: greater than 239 mg/dL LDL Cholesterol Calculated 127 <100 mg/dL Desirable LDL: less than 100 mg/dL Near Optimal/Above Optimal LDL: 110-129 mg/dL Borderline High LDL: 130-159 mg/dL High LDL: 160-189 mg/dL Very High LDL: greater than or equal to 190 mg/dL HDL Cholesterol 36 >40 mg/dL Desirable HDL: greater than 40 mg/dL Note: This HDL assay may give artificially low results in patients with liver disease. PSA,Total (Free>4and<10) Reviewed date:04/10/2025 12:38:10 PM Interpretation: Performing Lab:[facility], [address] [place] [phone] Notes/Report: PSA,Total (Free>4and<10) 2.84 0.00-4.00 ng/mL A Free PSA was not [...] Campbell Alinity i Chemiluminescent Microparticle Immunoassay (CMIA) REASON FOR VISIT yearly fasting labs Encounters Encounter Location Date Provider Diagnosis Neil Lewis MD [address] [facility] [address] [place], [place] [phone] 04/10/2025 Neil Lewis Prostatism N40.0 ; Lymphocytosis D72.820 ; Essential hypertension I10 and Low HDL (under 40) E78.6 Assessments Encounter Date Diagnosis (ICD Code) Assessment Notes Treatment Notes Treatment Clinical Notes Section Notes 04/10/2025 Prostatism (ICD-10 - N40.0) 04/10/2025 Lymphocytosis (ICD-10 - D72.820) 04/10/2025 Essential hypertension (ICD-10 - I10) 04/10/2025 Low HDL (under 40) (ICD-10 - E78.6) Plan Of Treatment Pending Test Test Name Order Date Complete Blood Count Auto Diff 11/13/202 5 Comprehensive [place]. Panel Fast UA ClnCatch+Micro w/rflx Cult 04/10/2025 Next Appt Details Provider Name:Neil Anderson ier, 04/17/2025 08:30:00 AM, [address] [facility], [address], [place], [place], [phone], Progress Notes * Bud ALVARADO EDOB:[birth year] (69 yo M)Acc No.[id number]:04/10/2025 Progress Note Patient: Bud LERNER Provider: Roma Lewis MD :1955 A ge:69 Y S ex:Male Date:04/10/2025 Address:[address] [place], [place] [id number] Subjective: * Chief Complaints: * 1 . Yearly fasting labs. * Medical History: Objective: * Vitals: Assessment: * Assessment: 1. P rostatism - N40.0 (Primary) 2 . L ymphocytosis - D72.820 ?3. E ssential hypertension - I10 4 . L ow HDL (under 40) - E78.6 ? Plan: * Treatment: 2. L ymphocytosis L AB: Complete Blood Count Auto Diff (Collection Date & Time - 04/10/2025 07:45 AM) L AB: Comprehensive [place]. Panel Fast L AB: UA ClnCatch+Micro w/rflx Cult (Collection Date & Time - 04/10/2025 07:45 AM) L AB: Lipid Panel (Collection Date & Time - 04/10/2025 07:45 AM) L AB: PSA,Total (Free>4and<10) (Collection Date & Time - 04/10/2025 07:45 AM) 3. E ssential hypertension L AB: Complete Blood Count Auto Diff (Collection Date & Time - 04/10/2025 07:45 AM) L AB: Comprehensive [place]. Panel Fast L AB: UA ClnCatch+Micro w/rflx Cult (Collection Date & Time - 04/10/2025 07:45 AM) L AB: Lipid Panel (Collection Date & Time - 04/10/2025 07:45 AM) L AB: PSA,Total (Free>4and<10) (Collection Date & Time - 04/10/2025 07:45 AM) 4. L ow HDL (under 40) L AB: Complete Blood Count Auto Diff (Collection Date & Time - 04/10/2025 07:45 AM) L AB: Comprehensive [place]. Panel Fast L AB: UA ClnCatch+Micro w/rflx Cult (Collection Date & Time - 04/10/2025 07:45 AM) L AB: Lipid Panel (Collection Date & Time - 04/10/2025 07:45 AM) L AB: PSA,Total (Free>4and<10) (Collection Date & Time - 04/10/2025 07:45 AM) * Procedure Codes: 3 6415 VENIPUNCT, ROUTINE* * * The named appointment provid er may or may not be the originator of this progress note, and it is not deemed complete until electronically signed by the appointment provider. Sign off status: Pending * Provider: Roma Lewis MD Date: 06/10/2024 Generated for Lilibeth ware/Nick/Rashawnitting on: 06/10/2024 02:01 PM EST
[2025-04-10 11:12] LABS: MANUAL DIFF FLAG NO
[2025-04-10 11:28] LABS: Hematocrit 48.8 % (42.0-52.0); Hemoglobin 16.4 g/dl (14.0-18.0); Imm Gran Abs Auto 0.01 X10*3/uL (0.00-0.03); Imm Gran Pct Auto 0.1 % (0.0-0.4); Lymphocytes Absolute Auto 3.2 X10*3/uL (1.2-4.9); Mean Corpuscular HGB Conc 33.6 g/dl (31.0-36.0); Mean Corpuscular Hemoglobin 30.8 pg (27.0-33.0); Mean Corpuscular Volume 91.6 fL (80.0-98.0); NRBC Abs Auto 0.000 X10*3/uL (0.0-0.012); NRBC Pct Auto 0.0 /100WBC (0.0-0.2); Platelet Count 258 X10*3/uL (160-400); Red Blood Count 5.33 X10*6/uL (4.60-5.80); White Blood Count 7.1 X10*3/uL (4.8-10.8)
[2025-04-10 11:33] LABS: Appearance Urine Clear; Glucose Urine UA Negative (Negative); PH 6.0 (5.0-9.0); Specific Gravity - Urine 1.025 (1.005-1.025); UMIC TRIGGER UACC YES
[2025-04-10 11:45] LABS: Alanine Aminotransferase 15 U/L (0-40); Albumin Level 4.6 g/dL (3.5-5.0); Alkaline Phosphatase 49 U/L (39-117); Anion Gap 11 (12-20); Aspartate Amino Transferase 33 U/L (5-37); Blood Urea Nitrogen 16 mg/dL (9-16); Calcium 8.8 mg/dL (8.4-10.2); Carbon Dioxide 28 mmol/L (22-29); Chloride 107 mmol/L (96-108); Cholesterol 184 mg/dL (<200); Estimated Glomerular Filt Rate > 60; HDL Cholesterol 36 mg/dL (>40); Potassium 3.7 mmol/L (3.3-5.1); Sodium 142 mmol/L (135-145); Total Protein 7.5 g/dL (6.5-8.0); Triglycerides 109 mg/dL (<150)
[2025-04-10 12:06] LABS: PSA,Total (Free>4and<10) 2.84 ng/mL (0.00-4.00)
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
== END 2025-04-10 11:10 | disposition home or self-care (01) ==
LOC: HO.LNP 11:09
PROVIDERS: Visit Provider Internal Medicine
DX: Z12.5 Encounter for screening for malignant neoplasm of prostate (principal); E78.6 Lipoprotein deficiency; N40.0 Benign prostatic hyperplasia without lower urinary tract symptoms; D72.820 Lymphocytosis (symptomatic); I10 Essential (primary) hypertension
CPT/HCPCS: 80053; 80061; 81001; 84153; 85025